=== PATIENT | male | born 1960 | race Caucasian/White ===

== ENCOUNTER 2018-05-12 18:42 | Emergency (ER) | payer BC ==
--- OUTSIDE RECORDS SUMMARY | 2018-05-12 18:58 | XMS REPORT | Continuity of Care Document ---
:1960 External Reference #:[id number] Author Name Fransico Vilchis D.O. Address [address] [place] [address] Care Team Providers Name Role Phone HCP given Primary Care Physician Unavailable Payers Date Identification Numbers Payment Provider Subscriber Policy Number: [id number] [employer] Leida Batres PayID: [id number] [address] [address] [place] [address] Advance Directives Description No Information Available Problems Date Description Provider Status Onset: 01/12/2013 Type 2 diabetes mellitus Fransico Vilchis D.O. Active Onset: 01/12/2013 Benign essential hypertension Fransico Vilchis D.O. Active Onset: 01/20/2013 Acute bronchitis Fransico Vilchis D.O. Active Onset: 01/20/2013 Anxiety state Fransico Vilchis D.O. Active Onset: 01/20/2013 Sleep disorder Fransico Vilchis D.O. Active Onset: 03/02/2013 Flatulence, eructation and gas pain Fransico Vilchis D.O. Active Onset: 03/02/2013 Vitamin D deficiency Fransico Vilchis D.O. Active Onset: 03/02/2013 Screening for malignant neoplasm of Fransico Vilchis D.O. Active colon Onset: 09/27/2014 Tension-type headache Fransico Vilchis D.O. Active Onset: 09/27/2014 Low back pain Fransico Vilchis D.O. Active Onset: 04/14/2015 Gastroesophageal reflux disease Fransico Vilchis D.O. Active Onset: 04/27/2015 C/O - a back symptom Fransico Vilchis D.O. Active Onset: 04/27/2015 Anemia Fransico Vilchis D.O. Active Onset: 04/27/2015 Allergy to bee venom Fransico Vilchis D.O. Active Onset: 06/03/2017 Essential hypertension Fransico Vilchis D.O. Active Family History Date Family Member(s) Observation Comments Number of Children 1 daughter and 1 son Number of Siblings 2 brothers and 2 sisters. Social History Type Date Description Comments Sex Unknown Marital Status Patient is Diet Diet is healthy and well balanced Employment Currently working Tobacco Use Start: Unknown Denies Cigarette Use Tobacco Use Start: Unknown End: Former Cigarette Smoker Unknown Smoking Status Reviewed: 04/14/18 Former Cigarette Smoker Tobacco Use Start: Unknown End: Patient is a former quit 16 years ago Unknown smoker Exercise Type/Frequency Exercises rarely Current Seat Belt/Car Seat Always uses a seat belt Allergies, Adverse Reactions, Alerts Date Description Reaction Status Severity Comments 11/12/2016 Bydureon Active welts on stomach 01/12/2013 NKDA Inactive Medications Medication Date Status Form Strength Qnty SIG Indications Ordering Provider Ventolin HFA 04/10 Active Aerosol 108(90Bas 18uni inhale 2 e) ts puffs by Fransico, mcg/Act mouth every 4 D.O. hours as needed for bronchospasm Ageless Male 04/01 Active Unknown Lantus Solostar 03/18 Active Solution 100Unit/M 90uni Inject 30 Pen-Injec L ts Units In The Fransico, t Morning. D.O. Increase By 2 Units Every 3 Days If 3 Day Average Morning Fasting Glucose Is Above 110. Max Of 120 Units/Day True Metrix 12/10 Active Strips 200un test 1-4 E11.65 [facility], Blood its times daily Fransico, Glucosetest as directed D.O. Strips Amlodipine 12/07 Active Tablets 10mg 90tab take one I10 [facility], Bes s tablet by Fransico, mouth every D.O. day for high blood pressure Metformin HCL 12/06 Active Tablets 500mg 450ta 2 by mouth in .65 bs a.m & 3 in at Fransico, night D.O. Cyclobenzaprine 10/14 Active Tablets 5mg 90tab 1 tab by Lck, HCL s mouth every Fransico, night for D.O. back pain. will make you drowsy Chlorthalidone 06/17 Active Tablets 25mg 90tab 1 by mouth I10 [place], s every day Geremias Bateman.O. Lisinopril 04/22 Active Tablets 40mg 90tab 1 [facility], s every day Geremias Bateman.O. Lancets 03/14 Active Misc 200un use as E11.65 M[facility] its directed for Fransico, Safety diabetic D.O. testing Freestyle Lite 03/14 Active Strips 200un or E11.65 [facility], Test its appropriate [place], testing D.O. strips for patients device, test 1-4 times daily as directed Onetouch Verio 07/26 Active Strips 90uni 1-4 times E11.65 [facility] ts daily as Fransico directed. D.O. Please substitute for strips that work with patient's device. Epipen 2-Buddy 04/27 Active Solution 0.3mg/0.3 2unit Administer Z91.030 Auto-Inje ML s 0.3 ml chevy Bateman intramuscular D.O. ly one time (dispense 2-buddy for each location, e.g. home/carry/ot her) may repeat one time for Freestyle Lite 04/12 Active Device 1unit or any other E11.65 [facility] Glucose s covered Fransico, Monitoring glucometer by D.O. System her insurance. Lorazepam 12/24 Active Tablets 1mg 60tab 1-2 by mouth F41.9 s nightly for Fransico sleep. D.O. Aspirin 01/07 Active Tablets 81mg 1 by mouth every day for heart disease protection Azithromycin 04/10 Hx Tablets 250mg 6tabs take 2 tablets by Fransico, - mouth one D.O. 04/15 time on the first day then take 1 tablet by mouth daily for 4 days Trelegy Ellipta 04/10 Hx Aerosol 100-62.5- 28uni inhale 1 puff J45.21 25mcg/Inh ts by mouth Fransico, - daily for D.O. 04/14 obstructive lung disease Lantus Solostar 12/06 Hx Solution 100Unit/M inject 18 E11.65 Pen-Injec L units in a.m. Fransico, - t & 18 units in D.O. 01/05 p.m. in 2u q3 days if 3 day average fasting a.m. glucose is >110. Tramadol HCL 10/14 Hx Tablets 50mg 20tab 1 by mouth s every 6 hours Fransico, - as needed for D.O. 01/06 pain Humalog Kwikpen 10/07 Hx Solution 100Unit/M 15uni check glu Pen-Injec L ts before lrgst Fransico, - t meal + D.O. 01/06 brkfst: 2u /2017 <150; 2u 151-200; 4u 201-250; 6u 251-300; chk gluc in 2 hour Atorvastatin 06/17 Hx Tablets 40mg 90tab 1 by mouth [facility], s every day Fransico, - D.O. 06/20 Amlodipine 06/03 Hx Tablets 5mg 90tab take 1 tablet I10 [facility], Bes s by mouth once Chi, - daily for M.D. 12/07 high blood /2018 pressure Lisinopril 03/14 Hx Tablets 20mg 90tab take one s tablet by Fransico, - mouth every D.O. 04/22 day for high 2018 blood pressure Lisinopril 03/01 Hx Tablets 10mg 90tab 1 by mouth s every day Fransico, - D.O. 03/14 Metformin HCL 11/12 Hx Tablets 500mg 450ta 1 by mouth E11.65 bs twice in Fransico, - morning and D.O. 12/06 three at /2018 night Lantus Solostar 09/19 Hx Solution 100Unit/M 90ml inject 44u in E11.65 Pen-Injec L the Am and Fransico, - t 44u in PM inc D.O. 12/06 by 2u every days if 3 day average morning fasting glucose is >110. mdd 120 unit BD Pen 09/19 Hx Misc 31G X 5 200un or E11.65 [place], Needle/Mini/ mm its appropriate Fransico, afine/31G X - needles for D.O. 05/17" 01/06 lantus pen. use up to 2/day, as directed, for insulin administratio n Bydureon 07/19 Hx Pen 2mg 12uni 2 mg E11.65 mehul, ts subcutaneousl Fransico, - y once D.O. 08/22 weekly. /2016 Farxiga 01/02 Hx Tablets 5mg 90tab 1 by mouth [facility] s every day Fransico, - D.O. 09/19 Metformin HCL 07/10 Hx Tablets 500mg 450ta 1 by mouth E11.65 [facility] bs twice in Fransico, - morning and D.O. 09/19 three at night Mens 07/09 Hx Tablets 1 po daily Unknown Multivitamin - 01/05 Ranitidine 150 04/14 Hx Tablets 150mg 180ta 1 cap by Mame, Maximum Strength bs mouth twice a Fransico, - day as needed D.O. 07/10 Truetrack Test 04/13 Hx Strips 150un 1-4 times E11.9 [facility] its daily as Fransico, - directed D.O. 08/22 Hydrocodone-Acet 04/10 Hx Tablets 5-325mg as needed Unknown aminophen /2015 - 07/10 Nexium 03/28 Hx Capsules 20mg 90cap 1 by mouth [facility] DR s every day Fransico, - D.O. 04/14 Cinnamon 12/31 Hx Capsules 500mg 1 po daily Unknown - 04/02 Metformin HCL 12/28 Hx Tablets 500mg 450ta 2 in the E11.9 [facility] morning and 3 Fr[place]ico, - at night D.O. 04/02 Victoza 12/28 Hx Solution 18mg/3ML 9ml initial: 0.6 E11. [facility] mg once daily Jeannine Bateman for 1 week; D.O. 12/28 then increase to 1.2 mg once daily [facility] Insulin 12/28 Hx Misc 31G X 8 90uni or other E11.9 [place], Pen Laona mm ts compatable Fransico, [id number] - needles with D.O. 09/18 victoza pens Bydureon 12/28 Hx Pen 2mg 12uni 2 mg E11.9 [facility], [facility] subcutaneousl [place] - y once D.O. 12/31 weekly. Ventolin HFA 11/17 Hx Aerosol 108(90Bas 24gm inhale 2 [facility] e) puffs by Jeannine Bateman mcg/Act mouth every 4 D.O. 06/02 hours needed for bronchospasm Farxiga 09/27 Hx Tablets 10mg 90tab 1 po [facility] 250.00 [facility] [place], - D.O. 12/31 Magox 400 09/27 Hx Tablets 400(241.3 360ta 1-4 tablets G44.209 [facility] mg) mg bs every night Fransico, - at bedtime as D.O. 07/18 M54.5 Esomeprazole 09/27/2014 - Hx Capsules DR 40mg 30caps take 1 [facility], Magnesium 03/28/2015 capsule by Allie Bateman mouth once daily as needed Atorvastatin 06/29/2014 - Hx Tablets 40mg 90tabs 1 by mouth 250. [facility], Calcium 04/14/2015 every day 00 Allie Bateman 272.0 Farxiga 03/29/2014 - Hx Tablets 5mg 30tabs 1 by mouth 250.00 [place], 09/27/2014 daily Allie Bateman Freestyle 03/29/2014 - Hx Strips 200units or appropriate [facility]11.9 [facility] 04/13/2015 testing strips Allie Bateman for patients device test 1-4 times daily as directed Lancet 03/29/2014 - Hx 360units whichever E11.65 Mame, Device For 03/14/2017 brand is Allie Bateman Testing preferred by Glucose insurance. testing daily- 4times a day # 360 Glipizide XL 03/02/2014 - Hx Tablets ER 5mg 90tabs 1/2 bid 250.00 [facility], 09/21/2013 24HR Allie Bateman Glipizide ER 12/24/2013 - Hx Tablets ER 2.5mg 180tabs 1 by mouth 250.00 [facility], 12/28/2014 24HR twice a day Allie Bateman E11.9 Trazodone HCL 12/24/2013 - Hx Tablets 50mg 30tabs take 1 tablet 307.49 [facility], 03/28/2014 by mouth daily Fransico, at bedtime for D.O. trouble sleeping Glipizide XL 11/16/2013 - Hx Tablets ER 5mg 60tabs take 1 tablet 250.00 [facility], 12/24/2013 24HR twice daily Kenia BatemanO. Ibuprofen 07/08/2013 - Hx Tablets 800mg 30tabs 1 cap by mouth [facility], 03/28/2015 three times a Fransico, day D.O. Lisinopril 06/22/2013 - Hx Tablets 10mg 90tabs take 1 tablet [facility], 04/02/2014 by mouth AT Fransico, Night D.O. Janumet 06/02/2013 - Hx Tablets 50-100 180tabs 1 by mouth E11.9 [facility] , 12/28/2014 0mg twice a day Fr[place]ico, for blood D.O. sugar control Accu-Chek 06/01/2013 - Hx Strips 102units use 2x/day and [place], Compact Test 03/13/2017 as needed for Lina Mireles monitoring M.Kenia blood sugar Acarbose 03/02/2013 - Hx Tablets 100mg 270tabs 1 tab by mouth 250.00 [facility], 06/09/2013 three times a [place]ico, day D.O. Probiotic 03/02/2013 - Hx Capsules 30caps 1 by mouth 787.3 [place], Acidophilus 09/30/2014 every day Fr[place]ico, D.O. Vitamin D3 03/02/2013 - Hx Tablets 5000Un 90tabs 1 tab by mouth 268.9 [place], 12/31/2014 it every day or 7 Fr[place]ico, tabs once a D.O. week Doxycycline 01/20/2013 - Hx Capsules 100mg 20caps 1 bid for ten 466.0 [place] Hyclate 01/30/2013 days until Fransico, gone D.O. Ventolin HFA 01/20/2013 - Hx Aerosol 108(90 1units Inhale 2 puffs 466.0 [place], 03/28/2014 Base) by mouth every Fransico, mcg/Ac 4 hours as D.O. t needed for bronchospasm Acarbose 01/20/2013 - Hx Tablets 50mg 90tabs Take 1 tablet 250.00 [place], 03/02/2013 by mouth 3 Fransico, times per day D.O. at the start of each main mealfor Type 2 diabetes Vistaril 01/20/2013 - Hx Capsules 25mg 30caps 1-2 cap by 300.00 [place] , 07/08/2013 mouth every Fransico, night as D.O. needed Acarbose 01/12/2013 - Hx Tablets 25mg 90tabs 1 po qAC 250.00 [place], 01/20/2013 [place]ico, D.O. Naproxen 01/23/2012 - Hx Tablets 500mg 60tabs 1 by mouth [place], 03/29/2014 twice a day w/ Fransico food D.O. Janumet XR 01/22/2012 - Hx Tablets ER 50-100 60tabs 1 by mouth [place] , 06/02/2013 24HR 0mg twice a day Chi for blood M.D. sugar control Glipizide XL 01/17/2012 - Hx Tablets ER 5mg 90tabs 1 bid 250.00 [place] , 01/12/2013 24HR [place], D.O. Lorazepam 01/16/2012 - Hx Tablets 1mg 30tabs 1 sl or by 250.00 [place], 12/24/2013 mouth every 6 Fransico, hours as D.O. needed for anxiety 300.00 Lisinopril 01/16/2012 - Hx Tablets 20mg 30tabs 1 po qd for 401.1 [place], 06/22/2013 high blood [place]ico, pressure D.O. Atorvastatin 01/16/2012 - Hx Tablets 10mg 90tabs take 1 [place], Calcium 06/29/2014 tablet by [place], mouth daily D.O. to prevent heart attack and stroke Metaxalone 01/16/2012 - Hx Tablets 800mg 60tabs 1 by mouth [place], 04/14/2018 at night as Fransico, needed for D.O. leg spasm Glipizide ER 02/03/2007 - Hx Tablets ER 10mg 30tabs 1 PO qam [facility] 11/11/2012 24HR Glucotrol XL 01/06/2007 - Hx Tablets ER 5mg 30tabs 1 po qam klemtck 02/03/2007 24HR Januvia 11/08/2006 - Hx Tablets 100mg 30tabs 1 po qam 250.00 [facility] 01/02/2013 One Touch Ultra 09/13/2006 - Hx Misc check [facility] Lancets 09/13/2007 sugars two times a day. One box One Touch Ultra 09/13/2006 - Hx Strips 90units Use as [facility] Test Strips 07/26/2016 Directed. One Touch 09/13/2006 - Hx Device #1 [employer] Ultrasmart 09/13/2007 Accu-Chek 08/30/2006 - Hx Misc 100units Used To [employer] Softclix 03/13/2017 Check Blood Lancets Sugars as Directed. Glucophage 08/26/2006 - Hx Tablets 1000mg 180tabs 1 PO bid 250.00 klepack 01/06/2013 Glucophage 07/22/2006 - Hx Tablets 500mg 60tabs 1 po bid. 250.00 klepack 08/26/2006 Simvastatin 07/22/2006 - Hx Tablets 40mg 90tabs 1 po qpm 272.0 [facility] 01/07/2013 Ak-Mycin 07/22/2006 - Hx 1/2 inch 372.00 [facility] 11/08/2006 ribbon of ointment to left eye 4 times A day. Norvasc 07/08/2006 - Hx Tablets 5mg 30tabs 1 po qpm 401.1 klepack 07/14/2006 Asmanex 04/11/2006 - Hx Inhaler 200mcg 1units 1 puff qd [facility] Twisthaler 01/08/2013 Albuterol Mdi 01/29/2006 - Hx Aerosol 90mcg/D 1units 2 puffs q 4 klepack 01/08/2013 ose hrs prn for SOB Fluoxetine 01/04/2006 - Hx Capsules 20mg 30caps 1 po qd 300.00 [facility] 01/14/2006 Valium 01/04/2006 - Hx Tablets 5mg 30tabs 1 po q pm 300.00 [facility] 01/07/2013 prn anxiety Nexium 11/30/2005 - Hx Capsules DR 40mg 30caps take 1 [place], 09/27/2014 capsule by [place], mouth once D.O. daily Diovan 11/26/2005 - Hx Tablets 160mg 90tabs 1 po bid [facility] 01/06/2013 Zetia 07/02/2005 - Hx Tablets 10mg 30tabs 1 po q day. 272.0 [facility] 11/26/2005 HCTZ 06/07/2005 - Hx Capsules 12.5mg 30caps 1 po q am 401.1 [facility] 11/26/2005 for high blood pressure Ambien 06/07/2005 - Hx Tablets 10mg 30tabs take 1 300.00 [facility] 11/26/2005 tablet at hs prn Glucotrol XL 05/28/2005 - Hx Tablets 10mg 60tabs 1 po bid [facility] 01/06/2007 Ranitidine 05/23/2005 - Hx Tablets 300mg 90tabs 1 po qd [facility] 01/07/2013 Soma 04/18/2005 - Hx Tablets 350mg 90tabs 1 po tid [facility] 10/15/2012 prn for pain. do not operate heavy equipment while on [facility]. Paxil 02/21/2005 - Hx Tablets 20mg 30tabs 1 po qam 785.1 [facility] 11/26/2005 Avandia - Hx Tablets 4mg 60tabs 1 po bid [facility] 12/25/2006 Pravachol - Hx Tablets 80mg 90tabs 1 po qd Unknown Unknown Ibuprofen - Hx Tablets 200mg otc taking 2 Unknown 07/08/2013 tab to 4 tab with a snack for your pain Immunizations CPT Code Status Date Vaccine Lot # [id number] Given 06/26/2014 Adacel or Boostrix, TDaP Vital Signs Date Vital Result Comment 04/14/2018 4:43pm BP Systolic 128 mmHg BP Diastolic 82 mmHg Weight 230.50 lb with work boots 04/10/2018 2:31pm BP Systolic 134 mmHg BP Diastolic 70 mmHg Body Temperature 98.1 F 04/02/2018 9:09am BP Systolic 128 mmHg BP Diastolic 82 mmHg Weight 226.00 lb 01/06/2018 5:00pm BP Systolic 124 mmHg BP Diastolic 70 mmHg Weight 217.00 lb 12/07/2017 11:51am BP Systolic 136 mmHg BP Diastolic 74 mmHg Weight 220.00 lb 10/14/2017 1:40pm BP Systolic 126 mmHg BP Diastolic 70 mmHg 10/07/2017 4:19pm BP Systolic 122 mmHg BP Diastolic 78 mmHg Height 71.75 inches 5'11.75" Weight 231.00 lb BMI (Body Mass Index) 31.5 kg/m2 06/17/2017 4:02pm BP Systolic 142 mmHg BP Diastolic 80 mmHg Weight 226.00 lb 06/03/2017 10:50am BP Systolic 168 mmHg BP Diastolic 90 mmHg BP Systolic Recheck 158 mmHg BP Diastolic Recheck 105 mmHg Weight 224.00 lb 03/14/2017 4:37pm BP Systolic 144 mmHg BP Diastolic 78 mmHg Height 71.25 inches 5'11.25" Weight 225.00 lb BMI (Body Mass Index) 31.2 kg/m2 11/12/2016 5:01pm BP Systolic 118 mmHg BP Diastolic 80 mmHg Weight 214.00 lb with work boots 09/19/2016 4:13pm BP Systolic 126 mmHg BP Diastolic 80 mmHg Weight 200.00 lb 07/19/2016 4:38pm BP Systolic 128 mmHg BP Diastolic 84 mmHg Height 71 inches 5'11" Weight 206.00 lb BMI (Body Mass Index) 28.7 kg/m2 08/29/2015 4:11pm BP Systolic 141 mmHg BP Diastolic 86 mmHg Heart Rate 78 /min Height 71 inches 5'11" Weight 196.00 lb BMI (Body Mass Index) 27.3 kg/m2 07/11/2015 10:51am BP Systolic 124 mmHg BP Diastolic 84 mmHg Height 72 inches 6'0" Weight 205.00 lb BMI (Body Mass Index) 27.8 kg/m2 04/27/2015 9:31am BP Systolic 120 mmHg BP Diastolic 78 mmHg 04/14/2015 12:54pm BP Systolic 152 mmHg BP Diastolic 82 mmHg Heart Rate 53 /min Weight 198.00 lb 03/28/2015 8:58am BP Systolic 120 mmHg BP Diastolic 80 mmHg Height 71.75 inches 5'11.75" Weight 192.00 lb BMI (Body Mass Index) 26.2 kg/m2 12/28/2014 8:47am BP Systolic 120 mmHg BP Diastolic 84 mmHg Heart Rate 86 /min Height 71.75 inches 5'11.75" Weight 216.00 lb w/shoes BMI (Body Mass Index) 29.5 kg/m2 09/27/2014 9:04am BP Systolic 110 mmHg BP Diastolic 72 mmHg Height 71.75 inches 5'11.75" Weight 214.00 lb BMI (Body Mass Index) 29.2 kg/m2 06/28/2014 9:09am BP Systolic 112 mmHg BP Diastolic 70 mmHg Weight 215.00 lb shoes on 03/29/2014 9:06am BP Systolic 140 mmHg BP Diastolic 84 mmHg Height 71.5 inches 5'11.50" Weight 223.00 lb BMI (Body Mass Index) 30.7 kg/m2 12/24/2013 8:59am BP Systolic 130 mmHg BP Diastolic 88 mmHg Weight 222.00 lb w/work boots 09/21/2013 9:14am BP Systolic 114 mmHg BP Diastolic 68 mmHg Weight 215.00 lb shoes on 07/08/2013 1:55pm BP Systolic 126 mmHg BP Diastolic 80 mmHg Height 72 inches 6'0" Weight 213.00 lb w/shoes BMI (Body Mass Index) 28.9 kg/m2 06/22/2013 9:32am BP Systolic 110 mmHg BP Diastolic 80 mmHg Height 72 inches 6'0" Weight 216.00 lb BMI (Body Mass Index) 29.3 kg/m2 03/02/2013 11:38am BP Systolic 108 mmHg BP Diastolic 70 mmHg Height 72 inches 6'0" Weight 215.00 lb BMI (Body Mass Index) 29.2 kg/m2 01/20/2013 11:14am BP Systolic 96 mmHg BP Diastolic 64 mmHg Body Temperature 97.8 F 01/12/2013 2:48pm BP Systolic 104 mmHg BP Diastolic 80 mmHg Height 72 inches 6'0" Weight 217.00 lb BMI (Body Mass Index) 29.4 kg/m2 12/25/2006 3:46pm BP Systolic 112 mmHg BP Diastolic 80 mmHg Body Temperature 98.4 F Height 72 inches 6'0" Weight 232.00 lb BMI (Body Mass Index) 31.5 kg/m2 11/08/2006 9:50am BP Systolic 120 mmHg BP Diastolic 78 mmHg Height 72 inches 6'0" Weight 233.00 lb BMI (Body Mass Index) 31.6 kg/m2 08/26/2006 9:25am BP Systolic 114 mmHg BP Diastolic 80 mmHg Height 72 inches 6'0" Weight 243.00 lb BMI (Body Mass Index) 33.0 kg/m2 07/22/2006 1:54pm BP Systolic 142 mmHg BP Diastolic 88 mmHg Height 72 inches 6'0" Weight 245.00 lb BMI (Body Mass Index) 33.2 kg/m2 07/08/2006 8:41am BP Systolic 150 mmHg BP Diastolic 104 mmHg Height 72 inches 6'0" Weight 248.00 lb BMI (Body Mass Index) 33.6 kg/m2 01/14/2006 11:21am BP Systolic 134 mmHg BP Diastolic 94 mmHg Height 72 inches 6'0" Weight 245.00 lb BMI (Body Mass Index) 33.2 kg/m2 01/04/2006 3:44pm BP Systolic 156 mmHg BP Diastolic 100 mmHg Body Temperature 98.6 F Height 72 inches 6'0" Weight 243.00 lb BMI (Body Mass Index) 33.0 kg/m2 Last Menstrual Period 0 11/26/2005 11:41am BP Systolic 124 mmHg BP Diastolic 76 mmHg Height 72 inches 6'0" Weight 237.00 lb BMI (Body Mass Index) 32.1 kg/m2 11/26/2005 11:40am BP Systolic 124 mmHg BP Diastolic 76 mmHg Height 72 inches 6'0" Weight 237.00 lb BMI (Body Mass Index) 32.1 kg/m2 07/02/2005 9:06am BP Systolic 128 mmHg BP Diastolic 82 mmHg Height 72 inches 6'0" Weight 242.00 lb BMI (Body Mass Index) 32.8 kg/m2 06/07/2005 1:00pm BP Systolic 140 mmHg BP Diastolic 100 mmHg Height 72 inches 6'0" Weight 250.00 lb BMI (Body Mass Index) 33.9 kg/m2 Last Menstrual Period 0 03/12/2005 10:33am BP Systolic 130 mmHg BP Diastolic 84 mmHg Height 72 inches 6'0" 02/21/2005 2:17pm BP Systolic 130 mmHg BP Diastolic 92 mmHg Height 72 inches 6'0" Weight 240.00 lb BMI (Body Mass Index) 32.5 kg/m2 Results Test Date Facility Test Result H/L Range Note Laboratory test 04/14/2018 In House Hemoglobin A1c 7.5 finding CBC Auto Diff 04/02/2018 [facility] White Blood 6.7 10^3/uL N 3.5- 10.8 [phone] Count Red Blood Count 5.08 10^6/uL N 4.00-5.40 Hemoglobin 14.2 g/dL N 14.0-18.0 Hematocrit 43 % N 42-52 Mean Corpuscular Volume 84 fL N 80-94 Mean Corpuscular Hemoglobin 28 pg N 27-31 Mean Corpuscular HGB Conc 34 g/dL N 31-36 Red Cell Distribution Width 14 % N 10.5-15 Platelet Count 236 10^3/uL N 150-450 Mean Platelet Volume 7.9 fL N 7.4-10.4 Abs Neutrophils 4.1 10^3/uL N 1.5-7.7 Abs Lymphocytes 1.6 10^3/uL N 1.0-4.8 Abs Monocytes 0.7 10^3/uL N 0-0.8 Abs Eosinophils 0.3 10^3/uL N 0-0.6 Abs Basophils 0.1 10^3/uL N 0-0.2 Abs Nucleated RBC 0 10^3/uL Granulocyte % 60.7 % Lymphocyte % 23.7 % Monocyte % 10.5 % Eosinophil % 4.0 % Basophil % 1.1 % Nucleated Red Blood Cells % 0 Comp Metabolic Panel 04/02/2018 [facility] Sodium 137 mmol/L N 135- 145 [phone] Potassium 4.8 mmol/L N 3.5-5.0 Chloride 102 mmol/L N 101-111 Co2 Carbon Dioxide 27 mmol/L N 22-32 Anion Gap 8 mmol/L N 2-11 Glucose 109 mg/dL High 70-100 Blood Urea Nitrogen 32 mg/dL High 6-24 Creatinine 1.39 mg/dL High 0.67-1.17 BUN/Creatinine Ratio 23.0 High 8-20 Calcium 9.9 mg/dL N 8.6-10.3 Total Protein 7.1 g/dL N 6.4-8.9 Albumin 4.6 g/dL N 3.2-5.2 Globulin 2.5 g/dL N 2-4 Albumin/Globulin Ratio 1.8 N 1-3 Total Bilirubin 0.60 mg/dL N 0.2-1.0 Alkaline Phosphatase 72 U/L N 34-104 Alt 36 U/L N 7-52 Ast 30 U/L N 13-39 Egfr Non- 52.5 >60 Egfr 63.5 >60 1 Lipid Profile (Trig/Chol/HDL) 04/02/2018 [facility] Triglycerides 149 mg/dL 2 [phone] Cholesterol 217 mg/dL 3 HDL Cholesterol 42.9 mg/dL 4 LDL Cholesterol 144 mg/dL 5 Urine Microalbumin 04/02/2018 [facility] Ur Microalbumin (mg/L) 15.4 Random [phone] Urine Creatinine 149.32 mg/dL Urine Microalbumin/Creatinine 10.3 N <31 Laboratory test 01/06/2018 In House Hemoglobin A1c 6.7 finding Comp Metabolic Panel 10/25/2017 [facility] Sodium 139 mmol/L N 135- 145 [phone] Potassium 4.5 mmol/L N 3.5-5.0 Chloride 105 mmol/L N 101-111 Co2 Carbon Dioxide 26 mmol/L N 22-32 Anion Gap 8 mmol/L N 2-11 Glucose 126 mg/dL High 70-100 Blood Urea Nitrogen 31 mg/dL High 6-24 Creatinine 1.40 mg/dL High 0.67-1.17 BUN/Creatinine Ratio 22.1 High 8-20 Calcium 9.1 mg/dL N 8.6-10.3 Total Protein 6.5 g/dL N 6.4-8.9 Albumin 4.2 g/dL N 3.2-5.2 Globulin 2.3 g/dL N 2-4 Albumin/Globulin Ratio 1.8 N 1-3 Total Bilirubin 0.50 mg/dL N 0.2-1.0 Alkaline Phosphatase 65 U/L N 34-104 Alt 48 U/L N 7-52 Ast 34 U/L N 13-39 Egfr Non- 52.1 >60 Egfr 63.0 >60 6 CBC Auto Diff 10/25/2017 [facility] White Blood Count 5.9 10^3/uL N 3.5-10.8 [phone] Red Blood Count 4.86 10^6/uL N 4.00-5.40 Hemoglobin 14.1 g/dL N 14.0-18.0 Hematocrit 41 % Low 42-52 Mean Corpuscular Volume 85 fL N 80-94 Mean Corpuscular Hemoglobin 29 pg N 27-31 Mean Corpuscular HGB Conc 34 g/dL N 31-36 Red Cell Distribution Width 14 % N 10.5-15 Platelet Count 204 10^3/uL N 150-450 Mean Platelet Volume 8.1 um3 N 7.4-10.4 Abs Neutrophils 3.2 10^3/uL N 1.5-7.7 Abs Lymphocytes 1.7 10^3/uL N 1.0-4.8 Abs Monocytes 0.7 10^3/uL N 0-0.8 Abs Eosinophils 0.2 10^3/uL N 0-0.6 Abs Basophils 0.1 10^3/uL N 0-0.2 Abs Nucleated RBC 0 10^3/uL Granulocyte % 55.0 % N 38-83 Lymphocyte % 28.2 % N 25-47 Monocyte % 12.2 % High 0-7 Eosinophil % 3.7 % N 0-6 Basophil % 0.9 % N 0-2 Nucleated Red Blood Cells % 0 Laboratory test finding 10/25/2017 [facility] Magnesium 2.0 mg/dL N 1.9-2.7 7 [phone] Vitamin B12 386 pg/mL N [phone] 8 Vitamin D Total 25(Oh) 41.4 ng/mL N 20-50 9 TSH (Thyroid Stim Horm) 2.19 mcIU/mL N 0.34-5.60 10 Creatine Kinase(CK) 329 U/L High 10-223 11 Celiac Hla 10/25/2017 [facility] [id number] SEE BELOW 12 [phone] [id number] SEE BELOW 13 Celiac Gene Pairs Present? No Celiac Gene Interpretation See Comment 14 Celiac Panel 10/25/2017 [facility] Tissue Transglutaminase IgA <1.2 U/ mL 15 [phone] Ab Immunoglobulin A 319 mg/dL 61 - 356 Celiac Interpretation See Comment 16 Lipid Profile 10/25/2017 [facility] Triglycerides 139 mg/dL 17 (Trig/Chol/HDL) [phone] Cholesterol 196 mg/dL 18 HDL Cholesterol 41.6 mg/dL 19 LDL Cholesterol 127 mg/dL 20 Lyme Western Blot 10/25/2017 [facility] Lyme Disease IgG Negative Negative [phone] Ab WB Lyme Disease IgG Bands Present No bands detecte <SEE NOTE> kDa 21 Lyme Disease IgM Ab WB Negative Negative Lyme Disease IgM Bands Present No bands detecte <SEE NOTE> kDa 22 Lyme Disease Interpretation See Comment 23 Tick-Borne Panel PCR 10/25/2017 [facility] Babesia microti Negative Negative Blood [phone] PCR Babesia ducani Negative Negative Babesia divergens/Mo-1 Negative Negative 24 Anaplasma phagocytophilum Negative Negative Ehrlichia chaffeensis Negative Negative Ehrlichia ewingii/canis Negative Negative Ehrlichia muris-like Negative Negative 25 B. miyamotoi PCR, B Negative Negative 26 Laboratory test 10/07/2017 In House Hemoglobin A1c 7.7 finding Laboratory test 06/17/2017 In House Hemoglobin A1c 7.5 finding Comp Metabolic Panel 06/03/2017 [facility] Sodium 141 mmol/L N 139- 145 [phone] Potassium 4.0 mmol/L N 3.5-5.0 Chloride 104 mmol/L N 101-111 Co2 Carbon Dioxide 28 mmol/L N 22-32 Anion Gap 9 mmol/L N 2-11 Glucose 105 mg/dL High 70-100 Blood Urea Nitrogen 18 mg/dL N 6-24 Creatinine 1.11 mg/dL N 0.67-1.17 BUN/Creatinine Ratio 16.2 N 8-20 Calcium 9.2 mg/dL N 8.6-10.3 Total Protein 6.5 g/dL N 6.4-8.9 Albumin 4.2 g/dL N 3.2-5.2 Globulin 2.3 g/dL N 2-4 Albumin/Globulin Ratio 1.8 N 1-3 Total Bilirubin 0.90 mg/dL N 0.2-1.0 Alkaline Phosphatase 62 U/L N 34-104 Alt 60 U/L High 7-52 Ast 49 U/L High 13-39 Egfr Non- 68.3 >60 Egfr 87.8 >60 27 CBC Auto Diff 06/03/2017 [facility] White Blood Count 6.1 10^3/uL N 3.5-10.8 [phone] Red Blood Count 5.03 10^6/uL N 4.0-5.4 Hemoglobin 14.5 g/dL N 14.0-18.0 Hematocrit 42 % N 42-52 Mean Corpuscular Volume 83 fL N 80-94 Mean Corpuscular Hemoglobin 29 pg N 27-31 Mean Corpuscular HGB Conc 35 g/dL N 31-36 Red Cell Distribution Width 14 % N 10.5-15 Platelet Count 155 10^3/uL N 150-450 Mean Platelet Volume 8.1 um3 N 7.4-10.4 Abs Neutrophils 3.6 10^3/uL N 1.5-7.7 Abs Lymphocytes 1.6 10^3/uL N 1.0-4.8 Abs Monocytes 0.7 10^3/uL N 0-0.8 Abs Eosinophils 0.2 10^3/uL N 0-0.6 Abs Basophils 0 10^3/uL N 0-0.2 Abs Nucleated RBC 0 10^3/uL Granulocyte % 58.3 % N 38-83 Lymphocyte % 25.9 % N 25-47 Monocyte % 11.2 % High 0-7 Eosinophil % 3.8 % N 0-6 Basophil % 0.8 % N 0-2 Nucleated Red Blood Cells % 0.1 Laboratory test 05/27/2017 [facility] Clotest SEE RESULT 28, 29 finding [phone] BELOW Laboratory test 05/27/2017 [facility] Surgical Pathology SEE RESULT 30, 31 finding [phone] BELOW Laboratory test 03/14/2017 In House Hemoglobin A1c 7.1 finding Laboratory test 11/12/2016 In House Hemoglobin A1c 8.2 finding Laboratory test 08/03/2016 [facility] TSH (Thyroid Stim 1.70 N 0.34- 32 finding [phone] Horm) mcIU/mL 5.60 Lipid Profile 08/03/2016 [facility] Triglycerides 188 mg/dL N 33 (Trig/Chol/HDL) [phone] Cholesterol 210 mg/dL N 34 HDL Cholesterol 37.8 mg/dL N 35 LDL Cholesterol 135 mg/dL N 36 Urine Microalbumin 08/03/2016 [facility] Urine Creatinine 81.63 mg/dL N Random [phone] Ur Microalbumin (mg/L) < 15.0 mg/L N Urine Microalbumin/Creatinine TNP ug/mg N <31 37 Comp Metabolic Panel 08/03/2016 [facility] Sodium 137 mmol/L N 133- 145 [phone] Potassium 4.4 mmol/L N 3.5-5.0 Chloride 104 mmol/L N 101-111 Co2 Carbon Dioxide 26 mmol/L N 22-32 Anion Gap 7 mmol/L N 2-11 Glucose 166 mg/dL High 70-100 Blood Urea Nitrogen 25 mg/dL High 6-24 Creatinine 1.10 mg/dL N 0.67-1.17 BUN/Creatinine Ratio 22.7 High 8-20 Calcium 9.3 mg/dL N 8.6-10.3 Total Protein 6.8 g/dL N 6.4-8.9 Albumin 4.3 g/dL N 3.2-5.2 Globulin 2.5 g/dL N 2-4 Albumin/Globulin Ratio 1.7 N 1-3 Total Bilirubin 1.00 mg/dL N 0.2-1.0 Alkaline Phosphatase 78 U/L N 34-104 Alt 43 U/L N 7-52 Ast 33 U/L N 13-39 Egfr Non- 69.0 N >60 Egfr 88.7 N >60 38 CBC Auto Diff 08/03/2016 [facility] White Blood Count 5.4 10^3/uL N 3.5-10.8 [phone] Red Blood Count 5.99 10^6/uL High 4.0-5.4 Hemoglobin 16.4 g/dL N 14.0-18.0 Hematocrit 50 % N 42-52 Mean Corpuscular Volume 84 fL N 80-94 Mean Corpuscular Hemoglobin 27 pg N 27-31 Mean Corpuscular HGB Conc 33 g/dL N 31-36 Red Cell Distribution Width 15 % N 10.5-15 Platelet Count 158 10^3/uL N 150-450 Mean Platelet Volume 9 um3 N 7.4-10.4 Abs Neutrophils 3.0 10^3/uL N 1.5-7.7 Abs Lymphocytes 1.4 10^3/uL N 1.0-4.8 Abs Monocytes 0.6 10^3/uL N 0-0.8 Abs Eosinophils 0.3 10^3/uL N 0-0.6 Abs Basophils 0.1 10^3/uL N 0-0.2 Abs Nucleated RBC 0 10^3/uL N Granulocyte % 56.0 % N 38-83 Lymphocyte % 26.8 % N 25-47 Monocyte % 11.4 % High 1-9 Eosinophil % 4.8 % N 0-6 Basophil % 1.0 % N 0-2 Nucleated Red Blood Cells % 0.1 N Laboratory test finding 07/19/2016 In House Hemoglobin A1c 9.0 Laboratory test finding 08/29/2015 In House Hemoglobin A1c 7.5 Ua Inhouse 08/29/2015 In House Ua Glucose - Ua Bilirubin - Ua Ketones - Ua Specific Bennett 1.025 Ua Blood - Ua PH 5.0 Ua Protein - Ua Urobilinogen - Ua Nitrite - Ua Leukocytes - Ua Inhouse 07/11/2015 In House Ua Glucose 2+ 39 Ua Bilirubin - Ua Ketones - Ua Specific Bennett 1.015 Ua Blood - Ua PH 6.0 Ua Protein - Ua Urobilinogen - Ua Nitrite - Ua Leukocytes - Laboratory test 07/11/2015 In House Hemoglobin A1c 9.3 finding CBC Auto Diff 04/27/2015 [facility] White Blood Count 5.2 10^3/uL N 3.5-10.8 [phone] Red Blood Count 5.55 10^6/uL High 4.0-5.4 Hemoglobin 15.2 g/dL N 14.0-18.0 Hematocrit 46 % N 42-52 Mean Corpuscular Volume 83 fL N 80-94 Mean Corpuscular Hemoglobin 27 pg N 27-31 Mean Corpuscular HGB Conc 33 g/dL N 31-36 Red Cell Distribution Width 14 % N 10.5-15 Platelet Count 144 10^3/uL Low 150-450 Mean Platelet Volume 9 um3 N 7.4-10.4 Abs Neutrophils 2.9 10^3/uL N 1.5-7.7 Abs Lymphocytes 1.6 10^3/uL N 1.0-4.8 Abs Monocytes 0.6 10^3/uL N 0-0.8 Abs Eosinophils 0.2 10^3/uL N 0-0.6 Abs Basophils 0 10^3/uL N 0-0.2 Abs Nucleated RBC 0 10^3/uL N Granulocyte % 54.7 % N 38-83 Lymphocyte % 30.0 % N 25-47 Monocyte % 10.6 % High 1-9 Eosinophil % 4.1 % N 0-6 Basophil % 0.6 % N 0-2 Nucleated Red Blood Cells % 0 N Laboratory test finding 04/27/2015 [facility] Ferritin 28.8 ng/mL N 24-336 [phone] Iron & Iron Binding Capacity 04/27/2015 [facility] Iron 115 g/dL N 50-212 [phone] Unsaturated Iron Binding 318 g/dL N Total Iron Binding Capacity 433 g/dL N 250-450 % Iron Saturation 27 % N 15-55 Retic Count 04/27/2015 [facility] Retic Count 1.3 % N 0.5-1.5 [phone] Corrected Retic Count 1.3 % N 0.5-1.5 Maturation Factor Retic 1.0 N Retic Index 1.30 N Mean Retic Volume 100.2 N Immature Retic Fraction 0.35 N RBC Retic Count 5.55 10^6/uL N 4.6-6.2 Hematocrit for Retic CNT 46 % N 42-52 Laboratory test 04/27/2015 [facility] Folic Acid > 20.00 N >3.99 finding [phone] (Folate) ng/mL Laboratory test 04/14/2015 [facility] Magnesium 1.9 mg/dL N 1.9-2.7 finding [phone] Vitamin B12 433 pg/mL N 180-914 40 Vitamin D Total 25(Oh) 31.5 ng/mL N 30-50 TSH (Thyroid Stim Horm) 3.62 ?IU/mL N 0.34-5.60 Creatine Kinase(CK) 178 U/L N 10-223 CBC Auto Diff 04/14/2015 [facility] White Blood Count 5.3 10^3/uL N 3.5-10.8 [phone] Red Blood Count 5.01 10^6/uL N 4.0-5.4 Hemoglobin 13.7 g/dL Low 14.0-18.0 Hematocrit 42 % N 42-52 Mean Corpuscular Volume 83 fL N 80-94 Mean Corpuscular Hemoglobin 27 pg N 27-31 Mean Corpuscular HGB Conc 33 g/dL N 31-36 Red Cell Distribution Width 15 % N 10.5-15 Platelet Count 147 10^3/uL Low 150-450 Mean Platelet Volume 9 um3 N 7.4-10.4 Abs Neutrophils 3.2 10^3/uL N 1.5-7.7 Abs Lymphocytes 1.3 10^3/uL N 1.0-4.8 Abs Monocytes 0.5 10^3/uL N 0-0.8 Abs Eosinophils 0.2 10^3/uL N 0-0.6 Abs Basophils 0 10^3/uL N 0-0.2 Abs Nucleated RBC 0.01 10^3/uL N Granulocyte % 60.9 % N 38-83 Lymphocyte % 25.2 % N 25-47 Monocyte % 9.4 % High 1-9 Eosinophil % 3.7 % N 0-6 Basophil % 0.8 % N 0-2 Nucleated Red Blood Cells % 0.2 N Comp Metabolic Panel 04/14/2015 [facility] Sodium 138 mmol/L N 133- 145 [phone] Potassium 4.1 mmol/L N 3.5-5.0 Chloride 104 mmol/L N 101-111 Co2 Carbon Dioxide 28 mmol/L N 22-32 Anion Gap 6 mmol/L N 2-11 Glucose 154 mg/dL High 70-100 Blood Urea Nitrogen 23 mg/dL N 6-24 Creatinine 1.15 mg/dL N 0.67-1.17 BUN/Creatinine Ratio 20.0 N 8-20 Calcium 8.8 mg/dL N 8.6-10.3 Total Protein 6.0 g/dL Low 6.4-8.9 Albumin 4.0 g/dL N 3.2-5.2 Globulin 2.0 g/dL N 2-4 Albumin/Globulin Ratio 2.0 N 1-3 Total Bilirubin 0.70 mg/dL N 0.2-1.0 Alkaline Phosphatase 77 U/L N 34-104 Alt 16 U/L N 7-52 Ast 19 U/L N 13-39 Egfr Non- 66.0 N >60 Egfr 84.9 N >60 41 Laboratory test finding 03/28/2015 In House Hemoglobin A1c 5.9 Liver Function Panel 03/28/2015 [facility] Total Protein 6.8 g/dL N 6.4-8.9 [phone] Albumin 4.5 g/dL N 3.2-5.2 Globulin 2.3 g/dL N 2-4 Albumin/Globulin Ratio 2.0 N 1-3 Total Bilirubin 1.00 mg/dL N 0.2-1.0 Direct Bilirubin 0.20 mg/dL High 0.03-0.18 Indirect Bilirubin 0.8 mg/dL N 0.3-1.0 Alkaline Phosphatase 83 U/L N 34-104 Alt 19 U/L N 7-52 Ast 23 U/L N 13-39 Urine Microalbumin 03/28/2015 [facility] Ur Microalbumin (mg/L) 7.0 mg/ L N Random [phone] Urine Creatinine 205.19 mg/dL N Urine Microalbumin/Creatinine 3.4 ug/mg N <31 Laboratory test 12/28/2014 In House Hemoglobin A1c 7.8 finding Laboratory test 09/27/2014 In House Hemoglobin A1c 7.7 finding Basic Metabolic 06/28/2014 [facility] Sodium 138 mmol/L N 133-145 42 Panel [phone] Potassium 4.4 mmol/L N 3.5-5.0 Chloride 104 mmol/L N 101-111 Co2 Carbon Dioxide 27 mmol/L N 22-32 Anion Gap 7 mmol/L N 2-11 Glucose 131 mg/dL High 70-100 Blood Urea Nitrogen 19 mg/dL N 6-24 Creatinine 1.14 mg/dL N 0.67-1.17 BUN/Creatinine Ratio 16.7 N 8-20 Calcium 9.1 mg/dL N 8.6-10.3 Egfr Non- 66.9 N >60 Egfr 86.1 N >60 43 Lipid Profile 06/28/2014 [facility] Triglycerides 117 mg/dL N 44 (Trig/Chol/HDL) [phone] Cholesterol 144 mg/dL N 45 HDL Cholesterol 34.6 mg/dL N 46 LDL Cholesterol 86 mg/dL N 47 Laboratory test 06/28/2014 In House Hemoglobin A1c 6.9 finding Laboratory test 03/29/2014 In House Hemoglobin A1c 9.7 finding Urine Microalbumin 12/24/2013 [facility] Ur Microalbumin (mg/L) 5.0 mg/ L N Random [phone] Urine Creatinine 111.93 mg/dL N Urine Microalbumin/Creatinine 4.4 N Less Than 31 CBC Auto Diff 12/24/2013 [facility] White Blood Count 6.0 10^3/uL N 4.8-10.8 [phone] Red Blood Count 5.21 10^6/uL N 4.0-5.4 Hemoglobin 14.4 g/dL N 14.0-18.0 Hematocrit 43 % N 42-52 Mean Corpuscular Volume 83 fL N 80-94 Mean Corpuscular Hemoglobin 28 pg N 27-31 Mean Corpuscular HGB Conc 33 g/dL N 31-36 Red Cell Distribution Width 14 % N 10.5-15 Platelet Count 173 10^3/uL N 150-450 Mean Platelet Volume 8 um3 N 7.4-10.4 Abs Neutrophils 3.4 10^3/uL N 1.5-7.7 Abs Lymphocytes 1.7 10^3/uL N 1.0-4.8 Abs Monocytes 0.7 10^3/uL N 0-0.8 Abs Eosinophils 0.2 10^3/uL N 0-0.6 Abs Basophils 0.1 10^3/uL N 0-0.2 Abs Nucleated RBC 0 10^3/uL N Granulocyte % 56.4 % N 38-83 Lymphocyte % 27.5 % N 25-47 Monocyte % 12.3 % High 1-9 Eosinophil % 2.9 % N 0-6 Basophil % 0.9 % N 0-2 Nucleated Red Blood Cells % 0.1 N Comp Metabolic Panel 12/24/2013 [facility] Sodium 137 mmol/L N 133- 145 [phone] Potassium 5.0 mmol/L N 3.7-5.6 Chloride 102 mmol/L N 101-111 Co2 Carbon Dioxide 29 mmol/L N 22-32 Anion Gap 6 mmol/L N 2-11 Glucose 128 mg/dL High 70-100 Blood Urea Nitrogen 16 mg/dL N 6-24 Creatinine 1.04 mg/dL N 0.67-1.17 BUN/Creatinine Ratio 15.4 N 8-20 Calcium 9.3 mg/dL N 8.6-10.3 Total Protein 7.0 g/dL N 6.4-8.9 Albumin 4.4 g/dL N 3.2-5.2 Globulin 2.6 g/dL N 2-4 Albumin/Globulin Ratio 1.7 N 1-3 Total Bilirubin 0.80 mg/dL N 0.2-1.0 Alkaline Phosphatase 68 U/L N 34-104 Alt 38 U/L N 7-52 Ast 27 U/L N 13-39 Egfr Non- 74.4 N >60 Egfr 95.7 N >60 48 Laboratory test 12/24/2013 [facility] TSH (Thyroid 3.12 IU/mL N 0.34- 5.60 finding [phone] Stimulating Horm) Vitamin D, 25 12/24/2013 [facility] 25-Hydroxy <4.0 ng/mL N Hydroxy [phone] Vitamin D2 25-Hydroxy Vitamin D3 36 ng/mL N 25-Hydroxy Vitamin D Total 36 ng/mL N 49 Laboratory test 12/24/2013 In House Hemoglobin A1c 7.2 finding Laboratory test 09/21/2013 In House Hemoglobin A1c 6.5 finding GC/Chlamydia 07/08/2013 [facility] GC/Chlamydia Rna (SEE NOTE) 50 Amplified Rna [phone] Laboratory test 06/22/2013 In House Hemoglobin A1c 6.2 finding Urine Microalbumin 03/02/2013 [facility] Ur Microalbumin 8.0 mg/L 51 Random [phone] (mg/L) Urine Creatinine 216.6 mg/dL Urine Microalbumin/Creatinine 3.7 Less Than 31 Laboratory test 03/02/2013 In House Hemoglobin A1c 7.6 finding Laboratory test 02/27/2013 [facility] Hepatitis C Nonreactive Nonreactive finding [phone] Antibody Vitamin D, 25 02/27/2013 [facility] 25-Hydroxy <4.0 ng/mL Hydroxy [phone] Vitamin D2 25-Hydroxy Vitamin D3 26 ng/mL 25-Hydroxy Vitamin D Total 26 ng/mL 52 CBC Auto Diff 02/27/2013 [facility] White Blood Count 5.4 10^3/uL 4.8-10.8 [phone] Red Blood Count 4.74 10^6/uL 4.0-5.4 Hemoglobin 13.0 g/dL Low 14.0-18.0 Hematocrit 38 % Low 42-52 Mean Corpuscular Volume 81 fL 80-94 Mean Corpuscular Hemoglobin 28 pg 27-31 Mean Corpuscular HGB Conc 34 g/dL 31-36 Red Cell Distribution Width 13 % 10.5-15 Platelet Count 212 10^3/uL 150-450 Mean Platelet Volume 8 um3 7.4-10.4 Abs Neutrophils 3.1 10^3/uL 1.5-7.7 Abs Lymphocytes 1.4 10^3/uL 1.0-4.8 Abs Monocytes 0.8 10^3/uL 0-0.8 Abs Eosinophils 0.1 10^3/uL 0-0.6 Abs Basophils 0.1 10^3/uL 0-0.2 Abs Nucleated RBC 0 10^3/uL Granulocyte % 57.7 % 38-83 Lymphocyte % 25.0 % 25-47 Monocyte % 14.4 % High 1-9 Eosinophil % 1.9 % 0-6 Basophil % 1.0 % 0-2 Nucleated Red Blood Cells % 0.1 Comp Metabolic Panel 02/27/2013 [facility] Sodium 138 mmol/L 133- 145 [phone] Potassium 4.3 mmol/L 3.5-5.0 Chloride 101 mmol/L 101-111 Co2 Carbon Dioxide 29.0 mmol/L 22-32 Anion Gap 8.0 mmol/L 2-11 Glucose 160 mg/dL High 70-100 Blood Urea Nitrogen 14 mg/dL 6-24 Creatinine 1.20 mg/dL 0.50-1.40 BUN/Creatinine Ratio 11.7 8-20 Calcium 8.7 mg/dL 8.1-9.9 Total Protein 6.5 g/dL 6.2-8.1 Albumin 3.5 g/dL Low 3.6-5.4 Globulin 3.0 g/dL 2-4 Albumin/Globulin Ratio 1.2 1-3 Total Bilirubin 1.0 mg/dL 0.4-1.5 Alkaline Phosphatase 83 U/L 30-110 Alt 35 U/L 14-54 Ast 28 U/L 12-42 Egfr Non- 63.3 >60 Egfr 81.4 >60 53 Laboratory test 02/27/2013 [facility] PSA Screening 0.704 ng/mL 0- 4.000 54 finding [phone] Lipid Profile 02/27/2013 [facility] Triglycerides 86 mg/dL 40-200 (Trig/Chol/HDL) [phone] Cholesterol 136 mg/dL Less than 200 HDL Cholesterol 33 mg/dL Low 40-60 55 Cholesterol/HDL Ratio 4.1 Average 1-4.44 LDL Cholesterol 85.8 Less Than 100 56 Ua Inhouse 01/12/2013 In House Ua Glucose - Ua Bilirubin - Ua Ketones - Ua Specific Bennett 1.030 Ua Blood - Ua PH 5.0 Ua Protein - Ua Urobilinogen - Ua Nitrite - Ua Leukocytes - Lipid Profile 05/26/2007 [facility] Cholesterol/HDL 5.16 High 1-4.97 (Trig/Chol/HDL) [phone] Ratio AVERAGE Cholesterol 160 mg/dL Less Than 200 57 Triglyceride 231 mg/dL High 40-200 High Density Lipoprotein 31 mg/dL Low 40-60 58 Low Density Lipoprotein 83 mg/dL Less Than 100 59 Comp Metabolic Panel 05/26/2007 [facility] One Over Creatinine 0.90 [phone] Anion Gap 7.0 mmol/L 2-11 60 Albumin/Globulin Ratio 1.8 1-3 Albumin 4.1 GM/DL 3.6-5.4 Alkaline Phosphatase 73 U/L 39-117 Alt (SGPT) 61 U/L 17-63 Ast (Sgot) 43 U/L High 12-42 BUN 15 mg/dL 6-24 Calcium 8.9 mg/dL 8.7-10.2 Chloride 100 mmol/L Low 101-111 Co2 (Carbon Dioxide) 31.0 mmol/L 22-32 Globulin 2.3 GM/DL 2-4 Glucose 185 mg/dL High 70-105 Potassium 4.3 mmol/L 3.5-5.0 Sodium 138 mmol/L 135-145 Bilirubin Total 1.1 mg/dL 0.4-1.5 Total Protein 6.4 GM/DL 6.2-8.1 BUN/Creatinine Ratio 13.6 8-20 Creatinine 1.1 mg/dL 0.5-1.4 Laboratory test finding 05/26/2007 [facility] Hemoglobin A1c 7.6 % High <6.0 61 [phone] CBC With Manual Diff 05/26/2007 [facility] RBC Morphology NORMAL [phone] White Blood Count 7.0 CUMM 4.8-10.8 Absolute Neutrophil Count 5.1 Hematocrit 42 % 42-52 Hemoglobin 15.0 g/dL 14.0-18.0 Eosenophil 4 % 0-6 Lymphocyte 18 % 5-47 Mean Corpuscular HGB Cone 35 g/dL 32-36 Mean Corpuscular Hemoglob 28 pg 27-31 Mean Corpuscular Volume 80 um3 80-94 Monocyte 5 % 0-13 Mean Platelet Volume 8.6 um3 7.4-10.4 Platelet Count 177 CUMM 150-450 Polysegmented Neutrophil 73 % 38-83 Red Cell Count 5.32 CUMM 4.6-6.2 Redcell Distribution WDTH 14 % 10.5-15 Comp Metabolic Panel 01/07/2007 [facility] One Over Creatinine 0.90 [phone] Anion Gap 7.0 mmol/L 2-11 62 Albumin/Globulin Ratio 1.6 1-3 Albumin 4.2 GM/DL 3.6-5.4 Alkaline Phosphatase 92 U/L 39-117 Alt (SGPT) 61 U/L 17-63 Ast (Sgot) 49 U/L High 12-42 BUN 19 mg/dL 6-24 Calcium 9.4 mg/dL 8.7-10.2 Chloride 103 mmol/L 101-111 Co2 (Carbon Dioxide) 29.0 mmol/L 22-32 Globulin 2.6 GM/DL 2-4 Glucose 169 mg/dL High 70-105 Potassium 4.4 mmol/L 3.5-5.0 Sodium 139 mmol/L 135-145 Bilirubin Total 1.1 mg/dL 0.4-1.5 Total Protein 6.8 GM/DL 6.2-8.1 BUN/Creatinine Ratio 17.3 8-20 Creatinine 1.1 mg/dL 0.5-1.4 Lipid Profile 01/07/2007 [facility] Cholesterol/HDL 4.56 1-4.97 (Trig/Chol/HDL) [phone] Ratio AVERAGE Cholesterol 164 mg/dL Less Than 200 63 Triglyceride 108 mg/dL 40-200 High Density Lipoprotein 36 mg/dL Low 40-60 64 Low Density Lipoprotein 106 mg/dL High Less Than 100 65 CBC With Electronic 01/07/2007 [facility] White Blood 5.8 CUMM 4.8- 10.8 Diff [phone] Count Abs Basophils 0 0-0.2 Abs Eosinophils 0.2 0-0.6 Absolute Neutrophil Count 3.8 1.5-7.7 Abs Lymphs 1.2 1.0-4.8 Abs Mononuclear 0.7 0-0.8 Basophil % 0.5 % 0-2 Hematocrit 44 % 42-52 Hemoglobin 15.2 g/dL 14.0-18.0 Eosinophil % 2.8 % 0-6 Gran % 64.9 % 38-83 Lymph % 20.5 % 20-45 Mean Corpuscular HGB Cone 35 g/dL 32-36 Mean Corpuscular Hemoglob 29 pg 27-31 Mean Corpuscular Volume 83 um3 80-94 Mean Platelet Volume 8.6 um3 7.4-10.4 Mononuclear % 11.3 % High 1-9 Platelet Count 197 CUMM 150-450 Red Cell Count 5.31 CUMM 4.6-6.2 Redcell Distribution WDTH 13 % 10.5-15 Comp Metabolic Panel 08/26/2006 [facility] One Over Creatinine 0.83 66 [phone] Anion Gap 4.0 mmol/L 2-11 67 Albumin/Globulin Ratio 1.7 1-3 Albumin 4.0 GM/DL 3.6-5.4 Alkaline Phosphatase 68 U/L 39-117 Alt (SGPT) 71 U/L High 17-63 Ast (Sgot) 65 U/L High 12-42 BUN 14 mg/dL 6-24 Calcium 8.8 mg/dL 8.7-10.2 Chloride 104 mmol/L 101-111 Co2 (Carbon Dioxide) 32.0 mmol/L 22-32 Globulin 2.4 GM/DL 2-4 Glucose 164 mg/dL High 70-105 Potassium 4.7 mmol/L 3.5-5.0 Sodium 140 mmol/L 135-145 68 Bilirubin Total 0.8 mg/dL 0.4-1.5 Total Protein 6.4 GM/DL 6.2-8.1 BUN/Creatinine Ratio 11.7 8-20 Creatinine 1.2 mg/dL 0.5-1.4 Lipid Profile 08/26/2006 [facility] Cholesterol/HDL 5.84 High 1-4.97 (Trig/Chol/HDL) [phone] Ratio AVERAGE Cholesterol 187 mg/dL Less Than 200 69 Triglyceride 287 mg/dL High 40-200 High Density Lipoprotein 32 mg/dL Low 40-60 70 Low Density Lipoprotein 98 mg/dL Less Than 100 71 Laboratory test finding 08/23/2006 [facility]. CK 152 U/L 26 -190 LABORATORY [phone] Troponin-I 0.0 NG/ML 0.0-0.6 72 Laboratory test finding 08/22/2006 [facility] CK 183 U/L 26 -190 LABORATORY [phone] Troponin-I 0.0 NG/ML 0.0-0.6 73 CBS W/Automated 08/22/2006 [facility]. White Blood 5.5 K/uL 3.4-10.5 Diff LABORATORY Count [phone] Red Blood Count 4.65 M/uL 4.20-5.80 Hemoglobin 13.5 gm/dL 12.8-17.0 Hematocrit 39.2 % 38.0-48.0 Mean Cell Volume 84.3 fL 80.0-96.0 Mean Corpuscular HGB 29.0 pg 27.0-33.0 Mean Corpuscular HGB Conc 34.4 g/dL 31.7-36.0 Platelet Count 196 K/uL 150-400 Red Cell Distri Width %CV 13.9 % 11.6-15.8 Mean Platelet Volume 7.0 fl 6.6-10.6 Neut% 62.8 % 33.0-73.0 Lymph % 24.3 % 17.0-56.0 [place] % 5.8 % 0.0-10.0 Eo% 3.5 % 0.0-5.0 Bas% 0.9 % 0.1-1.0 [place]% 2.7 % 0.0-4.0 Neut# 3.5 K/uL 1.8-7.0 Lymph # 1.3 K/uL 1.2-4.0 [place] # 0.3 K/uL 0.0-0.6 Eos # 0.2 K/uL 0.0-0.5 Baso # 0.1 K/uL 0.1-0.2 Neel# 0.2 0.0-1.5 Laboratory test 08/22/2006 [facility]. D-Dimer, < 0.22 74 finding LABORATORY Quantitative ug/mL [phone] Laboratory test 08/22/2006 [facility]. CK 166 U/L 26-19 finding LABORATORY 0 [phone] Troponin-I 0.0 NG/ML 0.0-0.6 75 Basic Metabolic Panel 08/22/2006 [facility]. Glucose 107 mg/dL 76-115 LABORATORY [phone] BUN 19 mg/dL 5-23 Creatinine 1.2 mg/dL 0.5-1.4 BUN/Creat 15.8 Sodium 142 mEq/L 136-145 Potassium 4.0 mEq/L 3.5-5.1 Chloride 105 mEq/L 98-107 Carbon Dioxide 30 mEq/L 21-32 Anion Gap 11 mEq/L 8-16 Calcium 8.5 mg/dL 8.5-10.1 Basic Metabolic Panel 07/22/2006 [facility] Over Creatinine 0.83 [phone] Anion Gap 8.0 mmol/L 2-11 76 BUN 21 mg/dL 6-24 Calcium 9.2 mg/dL 8.7-10.2 Chloride 97 mmol/L Low 101-111 Co2 (Carbon Dioxide) 30.0 mmol/L 22-32 Glucose 368 mg/dL High 70-105 Potassium 4.7 mmol/L 3.5-5.0 Sodium 135 mmol/L 135-145 BUN/Creatinine Ratio 17.5 8-20 Creatinine 1.2 mg/dL 0.5-1.4 Laboratory test 07/08/2006 [facility] Hemoglobin A1c 8.8 % High <6.0 77 finding [phone] Lipid Profile 07/08/2006 [facility] Cholesterol/HDL 7.34 AVERAGE High 1-4.97 (Trig/Chol/HDL) [phone] Ratio Cholesterol 235 mg/dL High Less Than 200 78 Triglyceride 403 mg/dL High 40-200 High Density Lipoprotein 32 mg/dL Low 40-60 79 Comp Metabolic Panel 07/08/2006 [facility] Over Creatinine 0.90 [phone] Anion Gap 10.0 mmol/L 2-11 80 Albumin/Globulin Ratio 1.7 1-3 Albumin 4.1 GM/DL 3.6-5.4 Alkaline Phosphatase 73 U/L 39-117 Alt (SGPT) 83 U/L High 17-63 Ast (Sgot) 60 U/L High 12-42 BUN 13 mg/dL 6-24 Calcium 9.1 mg/dL 8.7-10.2 Chloride 98 mmol/L Low 101-111 Co2 (Carbon Dioxide) 28.0 mmol/L 22-32 Globulin 2.4 GM/DL 2-4 Glucose 161 mg/dL High 70-105 Potassium 4.3 mmol/L 3.5-5.0 Sodium 136 mmol/L 135-145 Bilirubin Total 1.0 mg/dL 0.4-1.5 Total Protein 6.5 GM/DL 6.2-8.1 BUN/Creatinine Ratio 15.5 8-20 Creatinine 1.1 mg/dL 0.5-1.4 Surgical 06/10/2006 [facility] Surgical <SEE 81 Pathology [phone] Pathology NOTE> Laboratory test 11/26/2005 [facility] Vitamin B12 354 pg/mL 180- finding [phone] Hemoglobin A1c 6.5 % High <6.0 82 Retic Count 11/26/2005 [facility] Corrected Retic 1.4 % 0.5-1.5 [phone] Hematocrit For Retic Coun 42 % 42-52 Maturation Factor 1.0 RBC Retic Count 5.02 CUMM 4.6-6.2 Reticulocyte Count 1.45 % 0.5-1.5 Immature Retic Fraction 0.43 Mean Retic Volume 103.7 Retic Index 1.4 Iron & Iron Binding 11/26/2005 [facility] Iron Total 116 g/dL 45- 182 Capacity [phone] Unsaturated Iron Binding 325 g/dL Total Iron Binding Capacity 441 g/dL 250-450 % Iron Saturation 26 % 15-55 Transferrin 314.9 Laboratory test finding 11/26/2005 [facility] Ferritin 62 NG/ML 24- 336 [phone] Folic Acid > 20.0 NG/ML High 2.2-18.3 CBC With Manual 11/26/2005 [facility] White Blood Count 5.0 CUMM 4.8 -10.8 Diff [phone] Hematocrit 42 % 42-52 Hemoglobin 14.5 g/dL 14.0-18.0 Mean Corpuscular HGB Cone 35 g/dL 32-36 Mean Corpuscular Hemoglob 29 pg 27-31 Mean Corpuscular Volume 84 um3 80-94 Mean Platelet Volume 8.9 um3 7.4-10.4 Platelet Count 219 CUMM 150-450 Polysegmented Neutrophil 58 % 38-83 Red Cell Count 5.02 CUMM 4.6-6.2 Redcell Distribution WDTH 14 % 10.5-15 Absolute Neutrophil Count 3.1 Atypical Lymph 3 % 0-6 Anisocytosis SLIGHT Band Neutrophil 4 % 0-8 Basophil 2 % 0-2 Eosenophil 2 % 0-6 Lymphocyte 23 % 5-47 Metamyelocyte 1 % 0-2 Monocyte 7 % 0-13 Laboratory test 08/22/2005 [facility] PSA Screening 0.52 NG/ML 0.00- 4.00 83, 84 finding [phone] Liver Function 08/22/2005 [facility] Albumin/Globul 1.7 1-3 Panel [phone] in Ratio Albumin 3.8 GM/DL 3.6-5.4 Alkaline Phosphatase 68 U/L 39-117 Alt (SGPT) 37 U/L 17-63 Ast (Sgot) 35 U/L 12-42 Bilirubin Direct 0.1 mg/dL 0.1-0.5 Globulin 2.2 GM/DL 2-4 Indirect Bilirubin 0.7 mg/dL 0.1-0.75 Bilirubin Total 0.8 mg/dL 0.4-1.5 Total Protein 6.0 GM/DL Low 6.2-8.1 CBC With Electronic 08/22/2005 [facility] White Blood 6.2 CUMM 4.8- 10.8 Diff [phone] Count Abs Basophils 0 0-0.2 Abs Eosinophils 0.2 0-0.6 Absolute Neutrophil Count 4.0 1.5-7.7 Abs Lymphs 1.5 1.0-4.8 Abs Mononuclear 0.5 0-0.8 Basophil % 0.5 % 0-2 Hematocrit 38 % Low 42-52 Hemoglobin 13.2 g/dL Low 14.0-18.0 Eosinophil % 3.3 % 0-6 Gran % 63.6 % 38-83 Lymph % 23.8 % 20-45 Mean Corpuscular HGB Cone 35 g/dL 32-36 Mean Corpuscular Hemoglob 29 pg 27-31 Mean Corpuscular Volume 84 um3 80-94 Mean Platelet Volume 8.5 um3 7.4-10.4 Mononuclear % 8.8 % 1-9 Platelet Count 224 CUMM 150-450 Red Cell Count 4.51 CUMM Low 4.6-6.2 Redcell Distribution WDTH 13 % 10.5-15 Laboratory test finding 08/22/2005 [facility] Hemoglobin A1c 6.1 % High <6.0 85 [phone] Glucose 79 mg/dL 70-105 Lipid Profile 06/07/2005 [facility] Cholesterol 265 mg/dL High Less Than 86 (Trig/Chol/HDL) [phone] 200 Triglyceride 284 mg/dL High 40-200 High Density Lipoprotein 40 mg/dL 40-60 Low Density Lipoprotein 168 mg/dL High Less Than 100 87 Cholesterol/HDL Ratio 6.63 AVERAGE High 1-4.97 Comp Metabolic Panel 06/07/2005 [facility] One Over Creatinine 1.00 [phone] Anion Gap 6.0 mmol/L 2-11 88 Albumin/Globulin Ratio 1.9 1-3 Albumin 4.3 GM/DL 3.6-5.4 Alkaline Phosphatase 68 U/L 39-117 Alt (SGPT) 62 U/L 17-63 Ast (Sgot) 48 U/L High 12-42 BUN 18 mg/dL 6-24 Calcium 9.5 mg/dL 8.7-10.2 Chloride 102 mmol/L 101-111 Co2 (Carbon Dioxide) 30.0 mmol/L 22-32 Globulin 2.3 GM/DL 2-4 Glucose 147 mg/dL High 70-105 Potassium 4.4 mmol/L 3.5-5.0 Sodium 138 mmol/L 135-145 Bilirubin Total 1.1 mg/dL 0.4-1.5 Total Protein 6.6 GM/DL 6.2-8.1 BUN/Creatinine Ratio 18.0 8-20 Creatinine 1.0 mg/dL 0.5-1.4 Laboratory test 06/07/2005 [facility] Hemoglobin A1c 7.3 % High <6.0 89 finding [phone] CBC With Manual 06/07/2005 [facility] White Blood 5.8 CUMM 4.8-10.8 Diff [phone] Count Hematocrit 42 % 42-52 Hemoglobin 14.6 g/dL 14.0-18.0 Mean Corpuscular HGB Cone 35 g/dL 32-36 Mean Corpuscular Hemoglob 29 pg 27-31 Mean Corpuscular Volume 83 um3 80-94 Mean Platelet Volume 8.4 um3 7.4-10.4 Platelet Count 222 CUMM 150-450 Polysegmented Neutrophil 56 % 38-83 Red Cell Count 5.06 CUMM 4.6-6.2 Redcell Distribution WDTH 13 % 10.5-15 Absolute Neutrophil Count 3.2 Atypical Lymph 6 % 0-6 Anisocytosis SLIGHT Basophil 1 % 0-2 Eosenophil 2 % 0-6 Lymphocyte 24 % 5-47 Monocyte 11 % 0-13 NRBC 1 High 0-0 Polychromasia SLIGHT Laboratory test finding 02/21/2005 [facility] TSH 1.78 MIU/ML 0.34- 5.60 [phone] 1 Because ethnic data is not always readily available, this report includes an eGFR for both -Americans and non- Americans. The National Kidney Disease Education Program (NKDEP) does not endorse the use of the MDRD equation for patients that are not between the ages of 18 and 70, are , have extremes of body size, muscle mass, or nutritional status, or are non- or non-. According to the National Kidney Foundation, irrespective of diagnosis, the stage of the disease is based on the level of kidney function: Stage Description GFR(mL/min/1.73 m(2)) 1 Kidney damage with normal or decreased GFR 90 2 Kidney damage with mild decrease in GFR 60-89 3 Moderate decrease in GFR 30-59 4 Severe decrease in GFR 15-29 5 Kidney failure <15 (or dialysis) 2 Desirable: <150 Borderline High: 150-199 High: 200-499 Very High: >500 3 Desirable: <200 Borderline High: 200-239 High: >239 4 Low: <40 Desirable: 40-60 High: >60 5 Desirable: <100 Near Optimal: 100-129 Borderline High: 130-159 High: 160-189 Very High: >189 6 Because ethnic data is not always readily available, this report includes an eGFR for both -Americans and non- Americans. The National Kidney Disease Education Program (NKDEP) does not endorse the use of the MDRD equation for patients that are not between the ages of 18 and 70, are , have extremes of body size, muscle mass, or nutritional status, or are non- or non-. According to the National Kidney Foundation, irrespective of diagnosis, the stage of the disease is based on the level of kidney function: Stage Description GFR(mL/min/1.73 m(2)) 1 Kidney damage with normal or decreased GFR 90 2 Kidney damage with mild decrease in GFR 60-89 3 Moderate decrease in GFR 30-59 4 Severe decrease in GFR 15-29 5 Kidney failure <15 (or dialysis) 7 FASTING 12 HOUR 8 Normal Range 180 to 914 Indeterminate Range 145 to 180 Deficient Range <145 9 FASTING 12 HOUR 10 FASTING 12 HOUR 11 FASTING 12 HOUR 12 RESULT: REFERENCE VALUE Not Applicable 13 RESULT: :19 DQ Serologic Equivalent: REFERENCE VALUE Not Applicable 14 The absence of HLA celiac permissive genes would make the presence of celiac disease unlikely. ADDITIONAL INFORMATION Method: Molecular typing of HLA antigens performed using reverse SSOP and/or SSP methods, reported as serological equivalents and low to medium resolution molecular values. Performing Laboratory CLIA# [id number] Test Performed by: [place] [id number] REFERENCE VALUE <4.0 (Negative) Test Performed by: [place] [address] 16 Negative serology. Celiac disease unlikely. However, approximately 10% of patients with celiac disease are seronegative. Also, patients who are already adhering to a gluten-free diet may be seronegative. If celiac disease is highly clinically suspected, consider HLA-DQ typing. Test Performed by: [place] [address] 17 Desirable: <150 Borderline High: 150-199 High: 200-499 Very High: >500 18 Desirable: <200 Borderline High: 200-239 High: >239 19 Low: <40 Desirable: 40-60 High: >60 20 Desirable: <100 Near Optimal: 100-129 Borderline High: 130-159 High: 160-189 Very High: >189 21 No bands detected 22 No bands detected 23 Specific serologic response to B. burgdorferi infection is not detected, but cannot rule out early infection during which low or undetectable antibody levels to B. burgdorferi may be present. If clinically indicated, a new serum specimen should be submitted in 7-14 days. ADDITIONAL INFORMATION Per CDC criteria, the Lyme IgG Immunoblot is interpreted as positive if IgG-class antibodies are detected to >=5 B. burgdorferi proteins, and the Lyme IgM Immunoblot is interpreted as positive if IgM-class antibodies are detected to >=2 B. burgdorferi proteins. Immunoblot patterns not meeting these criteria should not be interpreted as positive. Epitopes from certain B. burgdorferi proteins (e.g., p41) are conserved across other bacteria, which may lead to the detection of IgM- and/or IgG-class antibodies on the Lyme disease immunoblots in patients without Lyme disease. Immunoblot should only be ordered on specimens that are positive or equivocal by a FDA-licensed Lyme disease antibody screening test (e.g., EIA). Results of the Lyme IgM immunoblot should not be considered in patients with >=30 days of symptoms. Test Performed by: [facility] - [address] [address] 24 ADDITIONAL INFORMATION This test was developed and its performance characteristics determined by [facility] in a manner consistent with CLIA requirements. This test has not been cleared or approved by the U.S. Food and Drug Administration. 25 ADDITIONAL INFORMATION This test was developed and its performance characteristics determined by [facility] in a manner consistent with CLIA requirements. This test has not been cleared or approved by the U.S. Food and Drug Administration. 26 ADDITIONAL INFORMATION This test was developed and its performance characteristics determined by [facility] in a manner consistent with CLIA requirements. This test has not been cleared or approved by the U.S. Food and Drug Administration. Test Performed by: [address] [address] 27 Because ethnic data is not always readily available, this report includes an eGFR for both -Americans and non- Americans. The National Kidney Disease Education Program (NKDEP) does not endorse the use of the MDRD equation for patients that are not between the ages of 18 and 70, are , have extremes of body size, muscle mass, or nutritional status, or are non- or non-. According to the National Kidney Foundation, irrespective of diagnosis, the stage of the disease is based on the level of kidney function: Stage Description GFR(mL/min/1.73 m(2)) 1 Kidney damage with normal or decreased GFR 90 2 Kidney damage with mild decrease in GFR 60-89 3 Moderate decrease in GFR 30-59 4 Severe decrease in GFR 15-29 5 Kidney failure <15 (or dialysis) 28 [id number] 29 SEE RESULT BELOW Name: LEIDA BATRES : [address]: Erick Parker MD Acct: [id number] Unit: [id number] AGE: 56 Location: [facility] Re05/27/17 SEX: M Status: DEP REF SPEC: [id number] RICHAR: 05/27/17-1010 [facility] [address]: Erick Parker MD REQ: [id number] RECD: 05/27/17994 STATUS: BOYD MANN DR: Fransico Vilchis DO _ SOURCE: GAS ANTRUM SPDESC: ORDERED: Clotest COMMENTS: [id number] Procedure Result Reported Site Clotest Final 05/28/17707 ML Clotest Negative * ML - Main Lab . END OF REPORT DEPARTMENT OF PATHOLOGY, [address] [place] [address] Miller Abraham M.D. Director [facility] # [id number] SEE RESULT BELOW Name: GISELLEIDA [place] : [address]: Erick Parker MD Acct: [id number] Unit: [id number] AGE: 56 Location: [facility] Re05/27/17 SEX: M Status: DEP REF SPEC: [id number] RICHAR: 05/27/17-1013 [facility] [address]: Erick Parker MD REQ: [id number] RECD: 05/27/17-1555 STATUS: DEE MANN DR: Fransico Vilchis DO _ ORDERED: LEVEL 4/3 COMMENTS: [id number] FINAL DIAGNOSIS 1. Esophagus, at 36 cm, biopsy: -- Squamous and columnar mucosa with chronic inflammation and intestinal metaplasia. -- Dysplasia is absent. 2. Esophagus, at 34 cm, biopsy: -- Columnar-type mucosa with chronic inflammation and intestinal metaplasia. -- Dysplasia is absent. 3. Colon, sigmoid, biopsy: -- Tubular adenoma. -- No high grade dysplasia or malignancy. 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 symmetric; esophagus ? normal, SC approximately 33, irregular, smooth ? biopsied x2 at 34 and x3 at 36, moderate hiatal hernia; stomach ? normal, CLOtest; duodenum ? normal. Colon: Excellent prep, mild sigmoid diverticulosis, loopy hepatic flexure, one small polyp. Conclusions/Plan: Ravi's - irregular 37-38 to 33, hiatal hernia; mild diverticulosis, sigmoid polyp GROSS DESCRIPTION 1. The specimen is received in formalin labeled, Biopsies Esophagus at 36, and consists of a 0.6 x 0.5 by up to 0.2 cm aggregate of mccarty-white irregular soft tissue fragments which is submitted entirely in one cassette. 2. The specimen is received in formalin labeled, Biopsies Esophagus at 34, and consists of CONTINUED ON NEXT PAGE DEPARTMENT OF PATHOLOGY, [address] [place] [address] Miller Abraham M.D. Director [facility] # [id number] RUN DATE: 05/28/17 [facility] LAB LIVE PAGE 2 Patient: LEIDA BATRES [id number] (Continued) GROSS DESCRIPTION (Continued) GROSS DESCRIPTION (Continued) two mccarty-pink irregular soft tissue fragments averaging 0.3 x 0.2 x 0.1 cm which are submitted entirely in one cassette. 3. The specimen is received in formalin labeled, Sigmoid Polyp, and consists of a 0.4 x 0.3 x 0.2 cm mccarty-white polypoid soft tissue fragment which is submitted entirely in one cassette. Signed (signature on file) Sinai Tripathi MD 1003 END OF REPORT DEPARTMENT OF PATHOLOGY, [address] [place] [address] Miller Abraham M.D. Director [facility] # [id number] FASTING 12 HOUR 33 Desirable <150 Borderline high 150-199 High 200-499 Very High >500 34 Desirable <200 Borderline high 200-239 High >239 35 Low <40 Desirable: 40-60 High: >60 36 Desirable: <100 mg/dL Near Optimal: 100-129 mg/dL Borderline High: 130-159 mg/dL High: 160-189 mg/dL Very High: >189 mg/dL 37 Unable to calculate due to low microalbumin 38 Because ethnic data is not always readily available, this report includes an eGFR for both -Americans and non- Americans. The National Kidney Disease Education Program (NKDEP) does not endorse the use of the MDRD equation for patients that are not between the ages of 18 and 70, are , have extremes of body size, muscle mass, or nutritional status, or are non- or non-. According to the National Kidney Foundation, irrespective of diagnosis, the stage of the disease is based on the level of kidney function: Stage Description GFR(mL/min/1.73 m(2)) 1 Kidney damage with normal or decreased GFR 90 2 Kidney damage with mild decrease in GFR 60-89 3 Moderate decrease in GFR 30-59 4 Severe decrease in GFR 15-29 5 Kidney failure <15 (or dialysis) 39 void, clear, yellow 40 Normal Range 180 to 914 Indeterminate Range 145 to 180 Deficient Range <145 41 Because ethnic data is not always readily available, this report includes an eGFR for both -Americans and non- Americans. The National Kidney Disease Education Program (NKDEP) does not endorse the use of the MDRD equation for patients that are not between the ages of 18 and 70, are , have extremes of body size, muscle mass, or nutritional status, or are non- or non-. According to the National Kidney Foundation, irrespective of diagnosis, the stage of the disease is based on the level of kidney function: Stage Description GFR(mL/min/1.73 m(2)) 1 Kidney damage with normal or decreased GFR 90 2 Kidney damage with mild decrease in GFR 60-89 3 Moderate decrease in GFR 30-59 4 Severe decrease in GFR 15-29 5 Kidney failure <15 (or dialysis) 42 FASTING 43 Because ethnic data is not always readily available, this report includes an eGFR for both -Americans and non- Americans. The National Kidney Disease Education Program (NKDEP) does not endorse the use of the MDRD equation for patients that are not between the ages of 18 and 70, are , have extremes of body size, muscle mass, or nutritional status, or are non- or non-. According to the National Kidney Foundation, irrespective of diagnosis, the stage of the disease is based on the level of kidney function: Stage Description GFR(mL/min/1.73 m(2)) 1 Kidney damage with normal or decreased GFR 90 2 Kidney damage with mild decrease in GFR 60-89 3 Moderate decrease in GFR 30-59 4 Severe decrease in GFR 15-29 5 Kidney failure <15 (or dialysis) 44 Desirable <150 Borderline high 150-199 High 200-499 Very High >500 45 Desirable <200 Borderline high 200-239 High >239 46 Low <40 Desirable: 40-60 High: >60 47 Desirable: <100 mg/dL Near Optimal: 100-129 mg/dL Borderline High: 130-159 mg/dL High: 160-189 mg/dL Very High: >189 mg/dL 48 Because ethnic data is not always readily available, this report includes an eGFR for both -Americans and non- Americans. The National Kidney Disease Education Program (NKDEP) does not endorse the use of the MDRD equation for patients that are not between the ages of 18 and 70, are , have extremes of body size, muscle mass, or nutritional status, or are non- or non-. According to the National Kidney Foundation, irrespective of diagnosis, the stage of the disease is based on the level of kidney function: Stage Description GFR(mL/min/1.73 m(2)) 1 Kidney damage with normal or decreased GFR 90 2 Kidney damage with mild decrease in GFR 60-89 3 Moderate decrease in GFR 30-59 4 Severe decrease in GFR 15-29 5 Kidney failure <15 (or dialysis) 49 REFERENCE VALUE 25-HYDROXY D TOTAL (D2+D3) Optimum levels in the healthy population are 20-50, patients with bone disease may benefit from higher levels within this range. Test Performed by: [address] [address] Document Restorer: Mode Chinchilla M.D. 50 RUN DATE: 07/10/13 [facility] LAB LIVE PAGE 1 RUN TIME: [address] [place] [address] Specimen Inquiry Name: LEIDA BATRES : [address]: Fransico Vilchis DO Acct: [id number] Unit: [id number] AGE: 53 Location: [facility] Re07/08/13 SEX: M Status: REG REF SPEC: [id number] RICHAR: 07/08/13-[address]: Fransico Vilchis DO REQ: [id number] RECD: 07/08/13 STATUS: COMP _ SOURCE: URINE SPDESC: ORDERED: GC/Chlam RNA QUERIES: Medent Number [id number] Procedure Result Verified Site Chlamydia Trachomatis RNA Final 07/10/13- 1432 ML NEGATIVE for Chlamydia trachomatis rRNA GC (N. gonorrhoeae) RNA Final 07/10/13- 1425 ML NEGATIVE for Neisseria gonorrhoeae rRNA A negative result does not preclude the presence of a C. trachomatis or N. gonorrhoeae infection because results are dependent on adequate specimen collection, absence of inhibitors, and sufficient rRNA to be detected. Test results may be affected by improper specimen collection, improper storage, technical error, or specimen mixup. Limitations of the Procedure: The Aptima Combo 2 Assay is not intended for the evaluation of suspected sexual abuse or for other medico-legal indications. For those patients for whom a false positive result may have adverse psychosocial impact, the [facility] recommends retesting by a method using an alternate technology. Therapeutic failure or success cannot be determined with the Aptima Combo 2 Assay since nucleic acid may persist following appropriate antimicrobial therapy. Results from the Aptima Combo 2 Assay should be interpreted in conjunction with other laboratory and clinical data available to the clinican. CONTINUED ON NEXT PAGE * ML=Testing performed at Main Lab DEPARTMENT OF PATHOLOGY, [facility] [place] [address] Miller Abraham M.D. Director [facility] # [id number] RUN DATE: 07/10/13 [facility] LAB LIVE PAGE 2 RUN TIME: [address] [place] [address] Specimen Inquiry Patient: GISELLEIDA Savannah [id number] (Continued) Specimen: [id number] Collected: 07/08/13 Received: 07/08/13-1819 (Continued) Procedure Result Verified Site GC (N. gonorrhoeae) RNA Final (continued) 07/10/13- 1425 Performance characteristics for detecting C. trachomatis and N. gonorrhoeae are derived from high prevalence populations. Positive results in low prevalence populations should be interpreted carefully with the understanding that the likelihood of a false positive may be higher than a true positive. END OF REPORT * ML=Testing performed at Main Lab DEPARTMENT OF PATHOLOGY, [address] [place] [address] Miller Abraham M.D. Director [facility] # [id number] 51 Microalbuminuria in a random sample is defined as: Microalbumin/Creatinine ratio of 30-299 ug/mg. 52 -- REFERENCE VALUE -- 25-HYDROXY D TOTAL (D2+D3) Optimum levels in the healthy population are 20-50, patients with bone disease may benefit from higher levels within this range. Test Performed by: [facility] [address] [address] Document Restorer: Bernabe Estevez III, M.D. 53 Because ethnic data is not always readily available, this report includes an eGFR for both -Americans and non- Americans. The National Kidney Disease Education Program (NKDEP) does not endorse the use of the MDRD equation for patients that are not between the ages of 18 and 70, are , have extremes of body size, muscle mass, or nutritional status, or are non- or non-. According to the National Kidney Foundation, irrespective of diagnosis, the stage of the disease is based on the level of kidney function: Stage Description GFR(mL/min/1.73 m(2)) 1 Kidney damage with normal or decreased GFR 90 2 Kidney damage with mild decrease in GFR 60-89 3 Moderate decrease in GFR 30-59 4 Severe decrease in GFR 15-29 5 Kidney failure <15 (or dialysis) 54 Serum levels of PSA measured using the AxialMED DXI Hybritech immunoassay should not be interpreted as absolute evidence of the presence or absence of disease. The PSA value should be used in conjunction with other pertinent clinical diagnostic procedures. The values obtained with different assay methods or kits cannot be used interchangeably. 55 HDL Interpretation: Undesirable: High Risk: Less than 40 mg/dL Desirable: Low Risk: Greater than 60 mg/dL 56 LDL Interpretation: Low Risk Optimal Level: LDL Less than 100 mg/dL Near or Above Optimal: LDL 100-129 mg/dL Borderline High Risk: LDL 130-159 mg/dL High Risk: LDL 160-189 mg/dL Very High Risk: LDL Greater than 189 mg/dL 57 Classification: Desirable . 58 Classification: Low . 59 CALCULATED LDL APPROXIMATES THE VALUE OF A DIRECT LDL MEASUREMENT. Classification: Optimal Level . 60 Anion gap measurement may be of limited value in the presence of any alkalosis, especially in a combined acid base disorder. . 61 THERAPEUTIC TARGET FOR THE TREATMENT OF DIABETES MELLITUS PATIENTS IS <7% HBA1C, AND IN SELECTIVE PATIENTS <6.0%. PLEASE REFER TO [employer] DIABETIC CARE GUIDELINES FOR FURTHER INFORMATION. 62 Anion gap measurement may be of limited value in the presence of any alkalosis, especially in a combined acid base disorder. . 63 Classification: Desirable . 64 Classification: Low . 65 CALCULATED LDL APPROXIMATES THE VALUE OF A DIRECT LDL MEASUREMENT. Classification: Near or above optimal . 66 results given via phone 67 Anion gap measurement may be of limited value in the presence of any alkalosis, especially in a combined acid base disorder. . 68 . 69 Classification: Desirable . 70 Classification: Low . 71 CALCULATED LDL APPROXIMATES THE VALUE OF A DIRECT LDL MEASUREMENT. Classification: Optimal Level . 72 0 - 0.6 NG/ML: NO EVIDENCE OF MYOCARDIAL INJURY 0.7 - 1.5 NG/ML: MILD ELEVATION, SUGGESTING POSSIBLE MYOCARDIAL INJURY > 1.5 NG/ML: CONSISTENT WITH MYOCARDIAL INJURY 73 0 - 0.6 NG/ML: NO EVIDENCE OF MYOCARDIAL INJURY 0.7 - 1.5 NG/ML: MILD ELEVATION, SUGGESTING POSSIBLE MYOCARDIAL INJURY > 1.5 NG/ML: CONSISTENT WITH MYOCARDIAL INJURY 74 Note: [facility] has established a 97.89% negative predictive value for thrombotic disease when a cutoff value of 0.5 ug/mL is used. Additional performance parameters for local prevalence of 94.4% as follows: PPV: 9.92%, Sensitivity: 76.47%, Specificity: 61.12% 75 0 - 0.6 NG/ML: NO EVIDENCE OF MYOCARDIAL INJURY 0.7 - 1.5 NG/ML: MILD ELEVATION, SUGGESTING POSSIBLE MYOCARDIAL INJURY > 1.5 NG/ML: CONSISTENT WITH MYOCARDIAL INJURY 76 Anion gap measurement may be of limited value in the presence of any alkalosis, especially in a combined acid base disorder. . 77 THERAPEUTIC TARGET FOR THE TREATMENT OF DIABETES MELLITUS PATIENTS IS <7% HBA1C, AND IN SELECTIVE PATIENTS <6.0%. PLEASE REFER TO [employer] DIABETIC CARE GUIDELINES FOR FURTHER INFORMATION. 78 Classification: Borderline High . 79 Classification: Low . 80 Anion gap measurement may be of limited value in the presence of any alkalosis, especially in a combined acid base disorder. . 81 ---- RUN DATE: 06/12/06 [facility] NMI LIVE PAGE 1 RUN TIME: 1126 Specimen Inquiry RUN USER: INTERFACE [id number] LEIDA BATRES <REG REF 06/10> ([id number]) 2ESHELLEY Parker MD, Erick -- Specimen: [id number] Spec Date: 06/10/[address]: Erick sarkar MD Spec Type: SURGICAL P Received: 06/10/06-1316 Copies to: [facility] SPECIMEN 1) BIOPSY GASTRIC ANTRUM 2) BIOPSY ESOPHAGOGASTRIC JUNCTION AT 38 CM. HISTORY CLINICAL INFORMATION: Patient with rectal bleeding with diarrhea only and gastroesophageal reflux disease, and anemia. GROSS DESCRIPTION 1) The specimen is received in formalin labelled Leida Batres, Biopsy Gastric Antrum, and consists of three, 0.2 cm. pink bits. Total, one block. 2) The specimen is received in formalin labelled Leida Malik Batres, Biopsy Gastroesophageal Junction at 38 cm., and consists of multiple, 0.1 cm. pink bits. Total, one block. DIAGNOSIS 1) Gastric antrum, biopsy - A) Diffuse mild chronic inactive gastritis. B) Reactive gastropathy. C) No active gastritis, granulomas, intestinal metaplasia, dysplasia, or malignancy. 2) Gastroesophageal junction at 38 cm., biopsy - A) Squamocolumnar junction with intestinal metaplasia. B) Moderate chronic inflammation. C) Reactive glandular atypia. D) No dysplasia or malignancy. Signed Electronically by: SNHEA CANNON MD 06/12/06 -- -- DEPARTMENT OF PATHOLOGY, [address] [place] [address] [facility] Permit #[id number] Sneha Cannon II, M.D. Director Miller Abraham M.D. Licensed Therapist D irector -- 82 THERAPEUTIC TARGET FOR THE TREATMENT OF DIABETES MELLITUS PATIENTS IS <7% HBA1C, AND IN SELECTIVE PATIENTS <6.0%. PLEASE REFER TO [employer] DIABETIC CARE GUIDELINES FOR FURTHER INFORMATION. 83 BLOOD SMEAR 84 * SERUM LEVELS OF PSA MEASURED USING THE EUSEBIA [employer] ACCESS HYBRITECH IMMUNOASSAY SHOULD NOT BE INTERPRETED ABSOLUTE EVIDENCE OF THE PRESENCE OR ABSENCE OF DISEASE. THE PSA VALUE SHOULD BE USED IN CONJUNCTION WITH OTHER PERTINENT CLINICAL DIAGNOSTIC PROCEDURES. A PSA value in the range of 0.1 to 0.6 ng/ml is indeterminate if being used as an indicator of recurrent or residual disease. . 85 THERAPEUTIC TARGET FOR THE TREATMENT OF DIABETES MELLITUS PATIENTS IS <7% HBA1C, AND IN SELECTIVE PATIENTS <6.0%. PLEASE REFER TO [employer] DIABETIC CARE GUIDELINES FOR FURTHER INFORMATION. 86 Classification: High . 87 CALCULATED LDL APPROXIMATES THE VALUE OF A DIRECT LDL MEASUREMENT. Classification: High . 88 Anion gap measurement may be of limited value in the presence of any alkalosis, especially in a combined acid base disorder. . 89 THERAPEUTIC TARGET FOR THE TREATMENT OF DIABETES MELLITUS PATIENTS IS <7% HBA1C, AND IN SELECTIVE PATIENTS <6.0%. PLEASE REFER TO [employer] DIABETIC CARE GUIDELINES FOR FURTHER INFORMATION. Procedures Date Code Description Status 10/14/2017 [id number] Diabetic Foot Exam Completed 10/07/2017 30353 X-Ray Knee,Ap&Lateral Oblique Views Completed 05/27/2017 [id number] Colonoscopy Completed 03/14/2016 [id number] Diabetic Retinal Eye Exam Completed 08/29/2015 [id number] Visual Acuity Screening Test - for Dot exams Completed 09/27/2014 05272 Osteopathic Manipulative Treatment 1 Or 2 Body Region Completed 07/22/2006 75859 Visual Acuity Screening Test Completed Encounters Type Date Location Provider Dx Diagnosis Office Visit 04/14/2018 Main Office Fransico Vilchis, E11.65 Type 2 diabetes 4:30p D.O. 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 mellitus with hyperglycemia R60.0 Localized edema Z79.4 USP (current) use of insulin J45.21 Mild intermittent asthma with (acute) exacerbation Office Visit 04/02/2018 9:00a Main Office Cydney Flores PA R60.0 Localized edema I10 Essential (primary) hypertension Office Visit 01/06/2018 4:30p Main Office Fransico Vilchis, E11.65 Type 2 diabetes D.O. mellitus with hyperglycemia R74.0 Nonspec elev of levels of transamns & lactic acid dehydrgnse I10 Essential (primary) hypertension F41.9 Anxiety disorder, unspecified F51.8 Oth sleep disord not due to a sub or known physiol cond Office Visit 12/07/2017 11:15a Main Office Cydney Flores, I10 Essential ( primary) PA hypertension Office Visit 10/14/2017 1:30p Main Office Fransico Vilchis, M54.5 Low back pain D.O. F41.9 Anxiety disorder, unspecified F51.8 Oth sleep disord not due to a sub or known physiol cond I10 Essential (primary) hypertension M17.0 Bilateral primary osteoarthritis of knee M25.561 Pain in right knee M25.562 Pain in left knee Z79.4 USP (current) use of insulin Office Visit 10/07/2017 3:45p Main Office Fransico Vilchis, E11.65 Type 2 diabetes D.O. 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 mellitus with hyperglycemia Z79.4 USP (current) use of insulin G44.209 Tension-type headache, unspecified, not intractable I10 Essential (primary) hypertension F51.8 Oth sleep disord not due to a sub or known physiol cond F41.9 Anxiety disorder, unspecified Office Visit 03/14/2017 4:30p Main Office Fransico Vilchis E11.65 Type 2 diabetes D.O. mellitus with hyperglycemia Z79.4 USP (current) use of insulin Z12.11 Encounter for screening for malignant neoplasm of colon M62.830 Muscle spasm of back M54.5 Low back pain M54.6 Pain in thoracic spine Office Visit 11/12/2016 4:30p Main Office Fransico Vilchis, E11.65 Type 2 diabetes D.O. 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 mellitus with hyperglycemia R22.2 Localized swelling, mass and lump, trunk T38.3x5A Adverse effect of insulin and oral hypoglycemic drugs, init Z79.4 USP (current) use of insulin Office Visit 07/19/2016 4:30p Main Office Fransico Vilchis, E11.65 Type 2 diabetes D.O. mellitus with hyperglycemia Office Visit 08/29/2015 4:00p Main Office Fransico Vilchis E11.65 Type 2 diabetes D.O. mellitus with hyperglycemia Z02.4 Encounter for examination for driving license Office Visit 07/11/2015 10:45a Main Office Fransico Vilchis E11.65 Type 2 diabetes D.O. mellitus with hyperglycemia Z00.00 Encntr for general adult medical exam w/o abnormal findings Office Visit 04/27/2015 9:30a Main Office Lcjag Fransico, M62.830 Muscle spasm of D.O. back G44.209 Tension-type headache, unspecified, not intractable K21.9 Gastro-esophageal reflux disease without esophagitis M54.5 Low back pain D64.9 Anemia, unspecified Z91.030 Bee allergy status Office Visit 04/14/2015 12:55p Main Office Mame Fransico, G44.209 Tension -type D.O. headache, unspecified, not intractable K21.9 Gastro-esophageal reflux disease without esophagitis M62.830 Muscle spasm of back Office Visit 03/28/2015 8:55a Main Office Fransico Vilchis, E11.65 Type 2 diabetes D.O. mellitus with hyperglycemia Office Visit 12/28/2014 8:45a Main Office Fransico Vilchis, E11.65 Type 2 diabetes D.O. mellitus with hyperglycemia M54.5 Low back pain Z79.899 Other prison (current) drug therapy Office Visit 09/27/2014 8:55a Main Office Fransico Vilchis, 250.00 Diabetes Mellitus D.O. W/O Compl Type II Or Unspec Controlled 307.49 Sleep Disorder Other 339.10 Tension Type Headache, Unspecified 401.1 Hypertension Benign 300.00 Anxiety State Unspec 268.9 Vitamin D Deficiency Unspec 250.02 Diabetes Mellitus W/O Compl Type II Or Unspec Type Uncontrol 724.2 Lumbago 739.0 Lesion Nonallopathic Head Region Not Elsewhere Class 739.1 Lesion Nonallopathic Cervical Region Not Elsewhere Class Office Visit 06/28/2014 8:55a Main Office Fransico Vilchis, 250.00 Diabetes Mellitus D.O. W/O Compl Type II Or Unspec Controlled 268.9 Vitamin D Deficiency Unspec 401.1 Hypertension Benign 307.49 Sleep Disorder Other 300.00 Anxiety State Unspec Office Visit 03/29/2014 9:15a Main Office Fransico Vilchis, 250.00 Diabetes Mellitus D.O. W/O Compl Type II Or Unspec Controlled 268.9 Vitamin D Deficiency Unspec 307.49 Sleep Disorder Other 401.1 Hypertension Benign 250.02 Diabetes Mellitus W/O Compl Type II Or Unspec Type Uncontrol 787.3 Flatulence Eructation & Gas Pain V70.0 Examination General Medical Routine AT Health Care Facility Office Visit 12/24/2013 8:55a Main Office Fransico Vilchis, 250.02 Diabetes Mellitus D.O. W/O Compl Type II Or Unspec Type Uncontrol 250.00 Diabetes Mellitus W/O Compl Type II Or Unspec Controlled 307.49 Sleep Disorder Other Office Visit 09/21/2013 8:55a Main Office TyronFransico javier, 250.00 Diabetes Mellitus D.O. W/O Compl Type II Or Unspec Controlled 268.9 Vitamin D Deficiency Unspec 401.1 Hypertension Benign Office Visit 07/08/2013 1:45p Main Office Mame Fransico, 604.90 Orchitis & D.O. Epididymitis Unspec Office Visit 06/22/2013 9:15a Main Office Mame Fransico, 250.00 Diabetes Mellitus D.O. W/O Compl Type II Or Unspec Controlled 787.3 Flatulence Eructation & Gas Pain 268.9 Vitamin D Deficiency Unspec V76.51 Special Screening For Malignant Neoplasms Colon 401.1 Hypertension Benign 729.2 Neuralgia Neuritis & Radiculitis Unspec Office Visit 03/02/2013 11:15a Main Office MameFransico, 250.00 Diabetes Mellitus D.O. W/O Compl Type II Or Unspec Controlled 787.3 Flatulence Eructation & Gas Pain 268.9 Vitamin D Deficiency Unspec V76.51 Special Screening For Malignant Neoplasms Colon Office Visit 01/20/2013 11:00a Main Office MameFransico, 250.00 Diabetes Mellitus D.O. W/O Compl Type II Or Unspec Controlled 401.1 Hypertension Benign 466.0 Bronchitis Acute 300.00 Anxiety State Unspec 307.49 Sleep Disorder Other Office Visit 01/12/2013 2:00p Main Office MameFransico, 250.00 Diabetes Mellitus D.O. W/O Compl Type II Or Unspec Controlled 401.1 Hypertension Benign V70.0 Examination General Medical Routine AT Health Care Facility Office Visit 12/25/2006 3:00p Main Office klepack 250.00 Diabetes Mellitus W/O Compl Type II Or Unspec Controlled 272.0 Hypercholesterolemia Pure 401.1 Hypertension Benign 794.8 Liver Study Abnormal Office Visit 11/08/2006 10:00a Main Office raeannpack 250.00 Diabetes Mellitus W/O Compl Type II Or Unspec Controlled 272.0 Hypercholesterolemia Pure 401.1 Hypertension Benign 278.00 Obesity Unspec 553.1 Hernia Umbilical 553.8 Hernia Other Spec Sites Office Visit 08/26/2006 9:20a Main Office klepack 250.00 Diabetes Mellitus W/O Compl Type II Or Unspec Controlled 272.0 Hypercholesterolemia Pure 401.1 Hypertension Benign Office Visit 07/22/2006 1:45p Main Office klepack 250.00 Diabetes Mellitus W/O Compl Type II Or Unspec Controlled 272.0 Hypercholesterolemia Pure 372.00 Conjunctivitis Acute Unspec Office Visit 07/08/2006 8:45a Main Office klepack 250.00 Diabetes Mellitus W/O Compl Type II Or Unspec Controlled 272.0 Hypercholesterolemia Pure 401.1 Hypertension Benign 300.00 Anxiety State Unspec 701.9 Hypertrophic & Atrophic Conditions Of Skin Unspec Office Visit 01/14/2006 11:15a Main Office kle[facility] 300.00 Anxiety State Unspec 272.0 Hypercholesterolemia Pure Office Visit 01/04/2006 3:45p Main Office klepack 008.69 Enteritis Due To Other Viral Enteritis 300.00 Anxiety State Unspec Office Visit 11/26/2005 11:15a Main Office klepack 250.00 Diabetes Mellitus W/O Compl Type II Or Unspec Controlled 401.1 Hypertension Benign 285.9 Anemia Unspec 723.1 Cervicalgia Office Visit 07/02/2005 8:45a Main Office [facility]le[facility] 300.00 Anxiety State Unspec 250.00 Diabetes Mellitus W/O Compl Type II Or Unspec Controlled 401.1 Hypertension Benign 272.0 Hypercholesterolemia Pure 790.09 Other Abnormality Of Red Blood Cells Office Visit 06/07/2005 12:55p Main Office klepack 300.00 Anxiety State Unspec 250.00 Diabetes Mellitus W/O Compl Type II Or Unspec Controlled 401.1 Hypertension Benign Office Visit 03/12/2005 10:30a Main Office klepack 300.00 Anxiety State Unspec 272.0 Hypercholesterolemia Pure 250.00 Diabetes Mellitus W/O Compl Type II Or Unspec Controlled 401.1 Hypertension Benign Office Visit 02/21/2005 2:00p Main Office klepack 300.00 Anxiety State Unspec 785.1 Palpitations Plan of Treatment Future Appointment(s):07/14/2018 4:30 pm - Fransico Vilchis D.O. at Main [id number]/14/2018 - Fransico Vilchis D.O.E11.65 Type 2 diabetes mellitus with hyperglycemiaFollow up:3 months recheck DM with A1cZ79.4 termite renewal inspector (current) use of [id number] Essential (primary) [id number] Anxiety disorder, unspecified
[2018-05-12] MEDS ORDERED: Ondansetron ODT TAB* 4 MG SL ONE (19:42)
[2018-05-12] MEDS ORDERED: Ondansetron ODT TAB* 4 MG PO ONE (22:42)
[2018-05-12 23:16] VITALS: BP 120/89
--- NOTE | 2018-05-13 00:20 | ED ---
Abdominal Pain/Male - HPI Summary HPI Summary: The patient is a 57 y/o M presenting to [facility] with a chief complaint of sudden onset nausea starting at 1300 and vomiting starting at 1330 after eating. He was out to eat this afternoon when his friend noticed that the chicken they ate wasn't cooked all the way through. He states that he had some diarrhea, and the abd pain started as a result from vomiting. He hasn't eaten anything since vomiting, but he drank some water. He denies fever. There are no other aggravating or alleviating factors. Hx of HTN, and diabetes which he takes Lantus and Metformin. - History of Current Complaint Chief Complaint: EDNauseaVomitDiarrh Stated Complaint: VOMITING/DIARRHEA PER PT Time Seen by Provider: 05/12/18 22:33 Hx Obtained From: Patient Onset/Duration: Sudden Onset, Still Present Timing: Lasting Hours Severity Initially: Moderate Severity Currently: Moderate Pain Intensity: 0 Pain Scale Used: 0-10 Numeric Location: Diffuse Radiates: No Aggravating Factor(s): Nothing Alleviating Factor(s): Nothing Associated Signs And Symptoms: Positive: Nausea, Vomiting, Diarrhea - small amount. Negative: Fever - Allergies/Home Medications Allergies/Adverse Reactions: Allergies Allergy/AdvReac Type Severity Reaction Status Date / Time exenatide Allergy Unknown Verified 05/27/17 09:35 Reaction Details PMH/Surg Hx/FS Hx/Imm Hx Endocrine/Hematology History: Reports: Hx Diabetes - controlled Cardiovascular History: Reports: Hx Hypertension - controlled, Other Cardiovascular Problems/Disorders - Hx HTN Respiratory History: Reports: Hx Asthma - Wheezing r/t upper respiratory infections GI History: Reports: Other GI Disorders - Hx GERD Musculoskeletal History: Denies: Hx Rheumatoid Arthritis, Hx Osteoporosis - Surgical History Surgery Procedure, Year, and Place: 3 hernia repair, 2 inguinal and 1 umbilical , ear surgery at age 8, tonsillectomy as a child, repair to R middle finger Infectious Disease History: No Infectious Disease History: Denies: Hx Clostridium Difficile, Hx Hepatitis, Hx Human Immunodeficiency Virus (HIV), Hx of Known/Suspected MRSA, Hx Shingles, Hx Tuberculosis, Hx Known/ Suspected VRE, Hx Known/Suspected VRSA, History Other Infectious Disease, Traveled Outside the [place] in Last 30 Days - Family History Known Family History: Positive: Diabetes - Social History Alcohol Use: None Substance Use Type: Reports: None Smoking Status (MU): Former Smoker Have You Smoked in the Last Year: No Review of Systems Negative: Fever Positive: Abdominal Pain - due to vomiting, Vomiting, Diarrhea - small amount, Nausea All Other Systems Reviewed And Are Negative: Yes Physical Exam - Summary Physical Exam Summary: Appearance: Well-appearing, Well-nourished, lying in bed comfortably Skin: Warm, dry, no obvious rash Eyes: sclera anicteric, no conjunctival pallor ENT: mucous membranes moist, pharynx appears normal Neck: Supple, nontender Respiratory: Clear to auscultation, no signs of respiratory distress Cardiovascular: Normal S1, S2. No murmurs. Normal distal pulses in tibial and radial bilaterally. Abdomen: Soft, nontender, normal active bowel sounds present Musculoskeletal: Normal, Strength/ROM Intact Neurological: A&Ox3, awake and alert, mentation is normal, speech is fluent and appropriate Psychiatric: affect is normal, does not appear anxious or depressed Triage Information Reviewed: Yes Vital Signs On Initial Exam: Initial Vitals Temp Pulse Resp BP Pulse Ox 98.3 F 104 18 119/80 98 05/12/18 18:48 05/12/18 18:48 05/12/18 18:48 05/12/18 18:48 05/12/18 18:48 Vital Signs Reviewed: Yes Diagnostics - Vital Signs Vital Signs Temp Pulse Resp BP Pulse Ox 05/12/18 23:15 98.1 F 98 17 120/89 95 05/12/18 21:45 98.6 F 94 18 115/76 97 05/12/18 19:30 96.3 F 104 20 135/82 97 05/12/18 18:48 98.3 F 104 18 119/80 98 - Laboratory Lab Results: Lab Results 05/12/18 Range/Units 19:39 POC Glucose (mg/dL) 167 H (70-100) mg/dL Lab Statement: Any lab studies that have been ordered have been reviewed, and results considered in the medical decision making process. Abdominal Pain Male Course/Dx - Course Course Of Treatment: The patient is a 57 y/o with a chief complaint of sudden onset nausea starting at 1300 and vomiting starting at 1330 after eating. He was out to eat this afternoon when his friend noticed that the chicken they ate wasn't cooked all the way through. He states that he had some diarrhea, and the abd pain started as a result from vomiting. He hasn't eaten anything since vomiting, but he drank some water. He denies fever. Hx of HTN, and diabetes which he takes Lantus and Metformin. Upon physical examination, there are no acute abnormalities. In the ED course, the patient was administered Zofran, which alleviated his symptoms. He is diagnosed with acute nausea and vomiting. He will be discharged home with prescription for Zofran as needed. He agrees with this plan and understands the need for return to the ED for any new or worsening symptoms. - Diagnoses Provider Diagnoses: Nausea & vomiting Discharge - Sign-Out/Discharge Documenting (check all that apply): Patient Departure - Patient will be discharged home. Patient Received Moderate/Deep Sedation with Procedure: No - Discharge Plan Condition: Improved Disposition: HOME Prescriptions: Ondansetron ODT TAB* [Zofran 4 MG Odt TAB*] 8 mg PO Q6H PRN #14 tab.odt PRN Reason: Nausea Patient Education Materials: Acute Nausea and Vomiting (ED) Referrals: Fransico Vilchis DO [Primary Care Provider] - 3 Days (if not improving) Additional Instructions: Take half your normal dose on insulin tonight. If you are still feeling nauseated tomorrow continue with half the normal insulin dose until you are eating and drinking more normally. - Billing Disposition and Condition Condition: IMPROVED Disposition: Home - Attestation Statements Document Initiated by Neo: Yes Documenting Scribe: Kimmy Monterroso Provider For Whom Neo is Documenting (Include Credential): Dr. Sharif Cintron MD Scribe Attestation: Kimmy Freeman scribed for Dr. Sharif Cintron MD on 05/14/18 at 0423. Scribe Documentation Reviewed: Yes Provider Attestation: The documentation as recorded by the Kimmy watkins accurately reflects the service I personally performed and the decisions made by me, Dr. Sharif Cintron MD Status of Scrleno Document: Viewed
== END 2018-05-12 23:15 | disposition home or self-care (01) ==
LOC: ED 18:42
DX: R11.2 Nausea with vomiting, unspecified (principal); R19.7 Diarrhea, unspecified; I10 Essential (primary) hypertension; Z87.891 Personal history of nicotine dependence; E11.9 Type 2 diabetes mellitus without complications
CPT/HCPCS: 99283; A9270-GY

== ENCOUNTER 2018-12-27 11:20 | Emergency (ER) | payer BC ==
--- OUTSIDE RECORDS SUMMARY | 2018-12-27 11:29 | XMS REPORT | Continuity of Care Document ---
:1960 External Reference #:[id number] Author Name Fransico Vilchis D.O. 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 Onset: 01/12/2013 Benign essential hypertension Fransico Vilchis D.O. Onset: 01/12/2013 Acute bronchitis Fransico Vilchis D.O. Onset: 01/20/2013 Anxiety state Fransico Vilchis D.O. Onset: 01/20/2013 Sleep disorder Fransico Vilchis D.O. Onset: 01/20/2013 Flatulence, eructation and gas pain Fransico Vilchis D.O. Onset: 03/02/2013 Vitamin D deficiency Fransico Vilchis D.O. Onset: 03/02/2013 Screening for malignant neoplasm of colon Fransico Vilchis D.O. Onset: 2012 Tension-type headache Fransico Vilchis D.O. Onset: 09/27/2014 Low back pain Fransico Vilchis D.O. Onset: 09/27/2014 Gastroesophageal reflux disease Fransico Vilchis D.O. Onset: 04/14/2015 C/O - a back symptom Fransico Vilchis D.O. Onset: 04/27/2015 Anemia Fransico Vilchis D.O. Onset: 04/27/2015 Allergy to bee venom Fransico Vilchis D.O. Onset: 04/27/2015 Essential hypertension Fransico Vilchis D.O. Onset: 06/03/2017 Social History Type Date Description Comments Sex Unknown Tobacco Use Start: Unknown Denies Cigarette Use Tobacco Use Start: Unknown End: Former Cigarette Smoker Unknown Smoking Status Reviewed: 10/31/18 Former Cigarette Smoker Tobacco Use Start: Unknown End: Patient is a former smoker quit 16 years ago Unknown Allergies, Adverse Reactions, Alerts Active Allergies Reaction Severity Comments Date Bynatasha miranda on stomach 11/12/2016 Inactive Allergies NKDA 01/12/2013 Medications Active Medications SIG Qnty Indications Ordering Date Provider CBD [facility] Geremias Bateman.O. 9 Freestyle use for glucose 1units E11 [facility], Susu/Bonifay/Flash monitoring 1-4 times Kenia BatemanO. 9 Monitoring System daily as directed. Device Ozempic SubQ: Initial: 0.25 1.500ml [facility], 0.25or 0.5 mg once weekly Kenia BatemanORamy 9 mg/Dose Solution Pen-Inject Freestyle test glucose 4 times 2units . [facility], Susu/Sensor/Flash daily as directed Kenia BatemanO. 9 Monitoring System Misc Simvastatin 1 by mouth every day 90tabs [facility], 10mg Fransico, D.O. 9 Tablets Metaxalone Take 1 Tablet By 60tabs [facility], 800mg Mouth AT Night For Fransico D.O. 9 Tablets Leg Spasm Ventolin HFA inhale 2 puffs by 18units [facility], mouth every 4 hours Geremias Bateman.O. 9 108(90Base) mcg/Act as needed for Aerosol bronchospasm Ageless Male Unknown Supplement 9 True Metrix Blood test 1-4 times daily 200units E11.65 [facility], Glucosetest Strips as directed Geremias Bateman.O. 8 Strips Amlodipine Besylate take one tablet by 90tabs I10 [facility], mouth every day for Fransico, D.O. 8 10mg Tablets high blood pressure Metformin HCL 2 by mouth in a.m & 3 450tabs E11.65 [facility], 500mg in at night Anthony Bateman. 8 Tablets Chlorthalidone 1 by mouth every day 90tabs I10 [facility], 25mg Geremias Bateman.O. 8 Tablets Lisinopril 1 by mouth every day 90tabs I10 [facility], 40mg Geremias Bateman.O. 8 Tablets Lancets use as directed for 200units E11.65 [facility], [place] Safety diabetic testing [facility] L[facility] Test or appropriate 200units E11.65 [facility], testing strips for Allie Bateman 8 Strips patients device, test 1-4 times daily as directed Onetouch Verio 1-4 times daily as 90units E11.65 [facility], directed. Please Allie Bateman 7 Strips substitute for strips that work with patient's device. Epipen 2-Buddy Administer 0.3 ml 2units Z91.030 [facility], intramuscularly one Allie Bateman 6 0.3mg/0.3ML Solution time (dispense 2-buddy Auto-Inject for each location, e.g. home/carry/other) may repeat one time for Lorazepam 1-2 by mouth nightly 60tabs F41.9 [facility], 1mg Tablets for sleep. Allie Bateman [address] 1 by mouth every day Unknown 81mg for heart disease [address] protection History Medications Trulicity subq: initial: 4ml Fransico Vilchis, 07/14/2018 - 0.75 mg once D.O. 08/01/2018 0.75mg/0.5ML weekly Solution Pen-Inject Tramadol HCL 1-2 tabs by 60tabs M25.511 Chi Conroy, 05/22/2018 - 50mg mouth every 8 M.D. 07/13/2018 Tablets hours as needed for pain Immunizations CPT Code Status Date Vaccine Lot # [id number] Given 06/26/2014 Adacel or Boostrix, TDaP Vital Signs Date Vital Result Comment 10/31/2018 9:20am BP Systolic 122 mmHg BP Diastolic 82 mmHg Weight 230.50 lb 07/14/2018 4:57pm BP Systolic 122 mmHg BP Diastolic 82 mmHg Height 71.25 inches 5'11.25" Weight 228.00 lb BMI (Body Mass Index) 31.6 kg/m2 Results Test Date Facility Test Result H/L Range Note Laboratory test 10/31/2018 [facility] Miscellaneous Test <pending> finding [phone] Drug Abuse 20 10/31/2018 [facility] Urine Amphetamine Negative 1 Urine [phone]/mL Urine Barbiturates Negative ng/mL 2 Urine Benzodiazepines Negative ng/mL 3 Urine Cocaine Negative ng/mL 4 Urine Phencyclidine Negative ng/mL Cutoff: 25 Urine Tetrahydrocannabinol Negative ng/mL Cutoff: 50 5 Creatinine, Urine 141.1 mg/dL Specific [place] 1.016 pH 5.4 Oxidants Negative 6 Adulterants Comment Normal Codeine, Ur Not Detected ng/mL Cutoff: 25 7 Ddbbqdx-1-pdum-glucuronide, Ur Not Detected ng/mL 8 Morphine, Ur Not Detected ng/mL Cutoff: 25 9 Mtvbbysr-8-nlyo-glucuronide, U Not Detected ng/mL 10 6-monoacetylmorphine, Ur Not Detected ng/mL Cutoff: 25 11 Hydrocodone, Ur Not Detected ng/mL Cutoff: 25 12 Norhydrocodone, Ur Not Detected ng/mL Cutoff: 25 13 Dihydrocodeine, Ur Not Detected ng/mL Cutoff: 25 14 Hydromorphone, Ur Not Detected ng/mL Cutoff: 25 15 Yahjrglchkihx0tecigjsgphopumf Not Detected ng/mL 16 Oxycodone, Ur Not Detected ng/mL Cutoff: 25 17 Noroxycodone, Ur Not Detected ng/mL Cutoff: 25 18 Oxymorphone, Ur Not Detected ng/mL Cutoff: 25 19 Kniczmahdnn-9-jxxh-glucuronide Not Detected ng/mL 20 Noroxymorphone, Ur Not Detected ng/mL Cutoff: 25 21 Fentanyl, Ur Not Detected ng/mL Cutoff: 2 22 Norfentanyl, Ur Not Detected ng/mL Cutoff: 2 23 Meperidine, Ur Not Detected ng/mL Cutoff: 25 24 Normeperidine, Ur Not Detected ng/mL Cutoff: 25 25 Naloxone, Ur Not Detected ng/mL Cutoff: 25 26 Fswcgwbt-0-gsqv-glucuronide, U Not Detected ng/mL 27 Methadone, Ur Not Detected ng/mL Cutoff: 25 28 Eddp, Ur Not Detected ng/mL Cutoff: 25 29 Propoxyphene, Ur Not Detected ng/mL Cutoff: 25 30 Norpropoxyphene, Ur Not Detected ng/mL Cutoff: 25 31 Tramadol, Ur Not Detected ng/mL Cutoff: 25 32 O-desmethyltramadol, Ur Not Detected ng/mL Cutoff: 25 33 Tapentadol, Ur Not Detected ng/mL Cutoff: 25 34 N-desmethyltapentadol, Ur Not Detected ng/mL Cutoff: 50 35 Ffhmhutmub-dbph-lktqwywseup, U Not Detected ng/mL 36 Buprenorphine, Ur Not Detected ng/mL Cutoff: 5 37 Norbuprenorphine, Ur Not Detected ng/mL Cutoff: 5 38 Norbuprenorphine glucuronide Not Detected ng/mL Cutoff: 20 39 Opioid Interpretation See Comment 40 Laboratory test 10/31/2018 In House Hemoglobin A1c 7.8 finding Laboratory test 07/14/2018 In House Hemoglobin A1c 7.6 finding Laboratory test 05/12/2018 [facility] Point of Care 167 mg/dL High 70 -100 41 finding [phone] Glucose 1 REFERENCE VALUE Cutoff: 500 2 REFERENCE VALUE Cutoff: 200 3 REFERENCE VALUE Cutoff: 100 4 REFERENCE VALUE Cutoff: 150 5 ADDITIONAL INFORMATION This report is intended for use in clinical monitoring or management of patients. It is not intended for use in employment-related testing. Test Performed by: [facility] [place] [address] [place] [address] Graphic [employer] Trades Worker: Neymar Severino M.D. Ph.D.; CLIA# [id number] 6 REFERENCE VALUE Cutoff: 200 mg/L 7 Tylenol 3 8 Metabolite of codeine REFERENCE VALUE Cutoff: 100 9 Susan Ortega, MS Contin; Also a minor metabolite (10%) of codeine and can be seen in low concentrations (<2,000 ng/mL) with poppy seed ingestion. 10 Metabolite of morphine REFERENCE VALUE Cutoff: 100 11 Metabolite of heroin 12 Lortab, [place], Vicodin; Also a very minor metabolite of codeine and impurity (<1%) of oxycodone. 13 Metabolite of hydrocodone 14 Metabolite of hydrocodone 15 Dilaudid, Exalgo; Also a metabolite of hydrocodone and a minor (<5%) metabolite of morphine. 16 Metabolite of hydromorphone REFERENCE VALUE Cutoff: 100 17 Endocet, Percocet, Oxycontin 18 Metabolite of oxycodone 19 Numorphan, Opana; Also a metabolite of oxycodone. 20 Metabolite of oxymorphone REFERENCE VALUE Cutoff: 100 21 Metabolite of oxymorphone 22 Actiq, Duragesic, Fentora 23 Metabolite of fentanyl 24 Demerol 25 Metabolite of meperidine 26 Narcan 27 Metabolite of naloxone REFERENCE VALUE Cutoff: 100 28 Dolophine 29 Metabolite of methadone 30 Darvon, Darvocet 31 Metabolite of propoxyphene 32 Tradol, Ultram, Ultracet 33 Metabolite of tramadol 34 Nucynta 35 Metabolite of tapentadol 36 Metabolite of tapentadol REFERENCE VALUE Cutoff: 100 37 Buprenex, Suboxone 38 Metabolite of buprenorphine 39 Metabolite of buprenorphine 40 No opioids were detected. The absence of expected drug(s) and/or drug metabolite(s) may indicate non-compliance, altered pharmacokinetics, inappropriate timing of specimen collection relative to drug administration, diluted/adulterated urine, or limitations of testing. ADDITIONAL INFORMATION This test was developed and its performance characteristics determined by [facility] in a manner consistent with CLIA requirements. This test has not been cleared or approved by the U.S. Food and Drug Administration. [address] Supervisor: [id number] Procedures Date Code Description Status 10/31/2018 347005271 Diabetic Foot Exam Completed 05/27/2017 78325205 Colonoscopy Completed 03/14/2016 [id number] Diabetic Retinal Eye Exam Completed Medical Devices Description No Information Available Encounters Type Date Location Provider Dx Diagnosis Office Visit 10/31/2018 Main Office Fransico Vilchis, E11.65 Type 2 diabetes 9:15a D.O. mellitus with hyperglycemia Z79.4 [facility] (current) use of insulin M25.511 Pain in right shoulder M25.512 Pain in left shoulder I10 Essential (primary) hypertension F41.9 Anxiety disorder, unspecified M54.5 Low back pain J45.21 Mild intermittent asthma with (acute) exacerbation T38.3x5A Adverse effect of insulin and oral hypoglycemic drugs, init K30 Functional dyspepsia Office Visit 07/14/2018 4:30p Main Office Fransico Vilchis, Z68.31 Body mass index D.O. 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 10/31/2018 M25.511 Pain in right shoulder Fransico Vilchis, D.O. 10/31/2018 M25.512 Pain in left shoulder Fransico Vilchis, D.O. 10/31/2018 I10 Essential (primary) hypertension Fransico Vilchis, D.O. 10/31/2018 F41.9 Anxiety disorder, unspecified Babs Vilchison, D.O. 10/31/2018 M54.5 Low back pain Fransico Vilchis, D.O. 10/31/2018 J45.21 Mild intermittent asthma with (acute) SopFransico javier, D.O. exacerbation 10/31/2018 T38.3x5A Adverse effect of insulin and oral Fransico Vilchis, D.O. hypoglycemic [antidiabetic] drugs, initial encounter 10/31/2018 K30 Functional dyspepsia Fransico Vilchis D.O. 07/14/2018 Z68.31 Body mass index (BMI) 31.0-31.9, adult Fransico Vilchis D.O. 07/14/2018 E11.65 Type 2 diabetes mellitus with hyperglycemia Fransico Vilchis , D.O. 07/14/2018 Z79.4 [facility] (current) use of insulin Fransico Vilchis D.O. 07/14/2018 M25.511 Pain in right shoulder Fransico Vilchis D.O. 07/14/2018 I10 Essential (primary) hypertension Fransico Vilchis D.O. 07/14/2018 F41.9 Anxiety disorder, unspecified Fransico Vilchis D.O. 07/14/2018 M54.5 Low back pain Fransico Vilchis D.O. 05/22/2018 M25.511 Pain in right shoulder Cydney Flores PA Plan of Treatment Future Appointment(s):02/02/2019 4:30 pm - Fransico Vilchis D.O. at Main [facility]10/31/2018 - Fransico Vilchis D.O.E11.65 Type 2 diabetes mellitus with hyperglycemiaNew Medication:Freestyle Susu/Bonifay/Flash Monitoring System - use for glucose monitoring 1-4 times daily as directed.Ozempic 0.25 or 0.5 mg/ Dose - SubQ: Initial: 0.25 mg once weeklyFreestyle Susu/Sensor/Flash Monitoring System - test glucose 4 times daily as directedFollow up:3 months recheck DM with A1cZ79.4 [facility] (current) use of zlqzupoZ55.511 Pain in right eydsykzsU23.512 Pain in left yqgljpfwK82 Essential (primary) anfhtxjuiptvK20.9 Anxiety disorder, slacxrhigztP89.5 Low back painJ45.21 Mild intermittent asthma with (acute) nalpnbcrntabR08.3x5A Adverse effect of insulin and oral hypoglycemic [antidiabetic] drugs, initial jrbunzynbT26 Functional dyspepsia Functional Status Description No Information Available Mental Status Description No Information Available Referrals Description No Information Available
--- NOTE | 2018-12-27 11:41 | ED ---
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 He was at work and a coworker offered him something to smoke, which was allegedly to help with his back pain. He thought that it was marijuana but after smoking it, he began to feel his throat closing. On the EMS he was given 50 mg Benadryl and 0.3 mg epinephrine and states that he felt some chest pressure after it but denies any current CP. He rates his current pain severity a 0/10. No aggravating factors noted. He also reports dizziness, weakness, dry throat, and tongue swelling but denies any SOB. He does not smoke , drink, or use recreational drugs. He has Hx of hernia repair surgery. - History Of Current Complaint Time Seen by Provider: 12/27/18 11:28 Hx Obtained From: Patient Onset/Duration: Lasting Hours, Still Present Timing: Hours Severity Currently: None Severity Initially: Mild Location: Negative Aggravating Factor(s): nothing Alleviating Factor(s): Epinephrine Associated Signs And Symptoms: Positive: Dizziness, Weakness, Other - pos - throat narrowing, dry throat, swollen tongue. Negative: SOB, Chest Pain - Allergies/Home Medications Allergies/Adverse Reactions: Allergies Allergy/AdvReac Type Severity Reaction Status Date / Time exenatide Allergy Unknown Verified 05/27/17 09:35 Reaction Details Home Medications: Home Medications Chlorthalidone 25 mg PO DAILY 12/27/18 [History Confirmed 12/27/18] Simvastatin TAB(NF) [Zocor 10 MG (NF)] 10 mg PO BEDTIME 12/27/18 [History Confirmed 12/27/18] amLODIPine TAB* [Norvasc 5 mg TAB*] 10 mg PO DAILY 12/27/18 [History Confirmed 12/27/18] PMH/Surg Hx/FS Hx/Imm Hx Endocrine/Hematology History: Reports: Hx Diabetes - controlled Cardiovascular History: Reports: Hx Hypertension - controlled, Other Cardiovascular Problems/Disorders - Hx HTN Respiratory History: Reports: Hx Asthma - Wheezing r/t upper respiratory infections GI History: Reports: Other GI Disorders - Hx GERD Musculoskeletal History: Denies: Hx Rheumatoid Arthritis, Hx Osteoporosis - Surgical History Surgical History: Yes Surgery Procedure, Year, and Place: 3 hernia repair, 2 inguinal and 1 umbilical , ear surgery at age 8, tonsillectomy as a child, repair to R middle finger Infectious Disease History: Denies: Hx Clostridium Difficile, Hx Hepatitis, Hx Human Immunodeficiency Virus (HIV), Hx of Known/Suspected MRSA, Hx Shingles, Hx Tuberculosis, Hx Known/ Suspected VRE, Hx Known/Suspected VRSA, History Other Infectious Disease, Traveled Outside the [place] in Last 30 Days - Family History Known Family History: Positive: Diabetes - Social History Alcohol Use: None Substance Use Type: Reports: None Smoking Status (MU): Former Smoker Have You Smoked in the Last Year: No Review of Systems Positive: Other - pos - throat narrowing, dry throat, swollen tongue Negative: Chest Pain Negative: Shortness Of Breath Neurological: Other - pos - dizziness Positive: Weakness All Other Systems Reviewed And Are Negative: Yes Physical Exam - Summary Physical Exam Summary: VITAL SIGNS: Reviewed. GENERAL: Patient is a well-developed and nourished male who is lying comfortable in the stretcher. Patient is not in any acute respiratory distress. HEAD AND FACE: No signs of trauma. No ecchymosis, hematomas or skull depressions. No sinus tenderness. EYES: PERRLA, EOMI x 2, No injected conjunctiva, no nystagmus. EARS: Hearing grossly intact. Ear canals and tympanic membranes are within normal limits. MOUTH: Oropharynx within normal limits. NECK: Supple, trachea is midline, no adenopathy, no JVD, no carotid bruit, no c- spine tenderness, neck with full ROM. CHEST: Symmetric, no tenderness at palpation. LUNGS: Clear to auscultation bilaterally. No wheezing or crackles. CVS: Regular rate and rhythm, S1 and S2 present, no murmurs or gallops appreciated. ABDOMEN: Soft, non-tender. No signs of distention. No rebound, no guarding, and no masses palpated. Bowel sounds are normal. EXTREMITIES: FROM in all major joints, no edema, no cyanosis or clubbing. NEURO: Alert and oriented x 3. No acute neurological deficits. Speech is normal and follows commands. SKIN: Dry and warm. Triage Information Reviewed: Yes Vital Signs Reviewed: Yes Procedures - Sedation Patient Received Moderate/Deep Sedation with Procedure: No Diagnostics - Laboratory Result Diagrams: 12/27/18 12:01 12/27/18 12:01 Lab Statement: Any lab studies that have been ordered have been reviewed, and results considered in the medical decision making process. - Radiology CXR Radiology Interpretation Completed By: Radiologist Summary of Radiographic Findings: IMPRESSION: NO EVIDENCE FOR ACTIVE CARDIOPULMONARY DISEASE. ED Physician has reviewed this report. - EKG 1200 Cardiac Rate: NL EKG Rhythm: Sinus Rhythm - 79 bpm EKG Comparison: No Significant Change Summary of EKG Findings: EKG @ 1200 reveals NSR @ 79 bpm. No significant change from previous EKG done on 09/13. No ST elevations. Normal axis. Complex Multi-Symp Course/Dx Assessment/Plan: Blood work w/o significant abnormality except for a slight decrease in hemoglobin and hematocrit of 12.4 with 36. Sodium 133, BUNs 42 creatinine is 1.61.probably just secondary to DEHYDRATION THEREFORE THE PATIENT WAS GIVEN 750 CC OF IV FLUIDS BY EMS, HE HAD ANOTHER 500 CC OF IV FLUIDS. Glucose is 241, magnesium was 1.6, CPK is 233 and CRP of 9.91. Urinalysis is negative for UTI. Urine toxicology positive for cannabinoids. Serum alcohol level is less than 10. Prior arrival to the ED EMS reported that the patient had an allergic reaction therefore he was given epinephrine, Decadron and Benadryl. I believe that the patient does have an allergic reaction. The patient is having swelling of the tongue, feeling that his throat is closing, no shortness of breath and has no other complaints. The patient was observed for a couple hours in the ED and the symptoms havent improved. The patient was alert oriented 3. The patient was given 4 mg Zofran and he had no nausea/ vomiting. I discussed all the findings and test results with the patient. Patient was instructed to return to the emergency room immediately if any of the symptoms return or worsen . Plan of care was discussed with the patient and understands and agrees. All questions were answered at patient satisfaction. There were no further complaints or concerns. Lung exam before discharge: CTA B /L. Good air exchange. No wheezing or crackles heard. CVS: S1 and S2 present. No murmurs appreciated. Patient is alert and oriented x 3. Patient is hemodynamically stable. 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 RETURN TO THE ED FOR ANY WORSENING OR NEW SYMPTOMS. - Billing Disposition and Condition Condition: STABLE Disposition: Home - Attestation Statements Document Initiated by Neo: Yes Documenting Scribe: Lars Carey Provider For Whom Radhaibleonel is Documenting (Include Credential): Manjinder Boswell MD Scribe Attestation: I, Lars Carey, scribed for Manjinder Boswell MD on 12/27/18 at 1829. Scribe Documentation Reviewed: Yes Provider Attestation: The documentation as recorded by the Lars watkins accurately reflects the service I personally performed and the decisions made by me, Manjinder Boswell MD Status of Scribe Document: Viewed
[2018-12-27] MEDS ORDERED: Ondansetron INJ* 2 MG/ML VIAL IV ONE (11:42)
[2018-12-27] MEDS ORDERED: NS 0.9% 500 ML* 500 ML IV SCH (12:00)
[2018-12-27 12:14] LABS: ABS Eosinophils 0.1 10^3/ul (0-0.6); ABS Lymphocytes 0.8 10^3/ul (1.0-4.8); ABS Monocytes 0.5 10^3/ul (0-0.8); ABS Neutrophils 4.5 10^3/ul (1.5-7.7); Eosinophil % 2.4 %; Hematocrit 36 % (42-52); Hemoglobin 12.4 g/dL (14.0-18.0); Lymphocyte % 13.2 %; Mean Corpuscular HGB Conc 34 g/dL (31-36); Mean Corpuscular Hemoglobin 29 pg (27-31); Mean Corpuscular Volume 84 fL (80-94); Mean Platelet Volume 7.9 fL (7.4-10.4); Platelet Count 169 10^3/uL (150-450); Red Blood Count 4.31 10^6 /uL (4.18-5.48); Red Cell Distribution Width 15 % (10-15)
[2018-12-27 12:25] LABS: ALT 24 U/L (7-52); AST 24 U/L (13-39); Albumin 3.9 g/dL (3.2-5.2); Albumin/Globulin Ratio 1.6 (1-3); Alkaline Phosphatase 75 U/L (34-104); Anion Gap 7 mmol/L (2-11); BUN/Creatinine Ratio 26.1 (8-20); Blood Urea Nitrogen 42 mg/dL (6-24); C Reactive Protein 9.91 mg/L (<8.01); CO2 Carbon Dioxide 24 mmol/L (22-32); Calcium 8.6 mg/dL (8.6-10.3); Chloride 102 mmol/L (101-111); Creatine Kinase 233 U/L (10-223); EGFR African American 53.4 (>60); EGFR Non-African American 44.1 (>60); Globulin 2.5 g/dL (2-4); Glucose 241 mg/dL (70-100); Magnesium 1.6 mg/dL (1.9-2.7); Potassium 4.5 mmol/L (3.5-5.0); Sodium 133 mmol/L (135-145); Total Protein 6.4 g/dL (6.4-8.9)
[2018-12-27 12:49] LABS: Alcohol < 10 mg/dL (<10)
[2018-12-27 12:51] LABS: Urine Appearance Clear; Urine Bilirubin Negative (Negative); Urine Blood Negative (Negative); Urine Color Yellow; Urine Glucose 1+(50 mg/dL) (Negative); Urine Ketones Negative (Negative); Urine Nitrite Negative (Negative); Urine Protein Negative (Negative); Urine Urobilinogen Negative (Negative)
[2018-12-27 13:04] LABS: TSH (Thyroid Stimulating Horm) 1.93 mcIU/mL (0.34-5.60)
[2018-12-27 13:41] LABS: Urine Benzodiazepine Screen None Detected (None Detect); Urine Opiates Screen None Detected (None Detect)
[2018-12-27] MEDS ORDERED: Magnesium Oxide TAB* 400 MG PO ONE (14:01)
[2018-12-27 15:51] VITALS: BP 104/64
== END 2018-12-27 15:45 | disposition home or self-care (01) ==
LOC: ED 11:20
DX: T50.901A Poisoning by unspecified drugs, medicaments and biological substances, accidental (unintentional), initial encounter (principal); Y92.9 Unspecified place or not applicable; E11.9 Type 2 diabetes mellitus without complications; I10 Essential (primary) hypertension; J45.909 Unspecified asthma, uncomplicated; Z87.891 Personal history of nicotine dependence; Z88.8 Allergy status to other drugs, medicaments and biological substances; Z79.82 Long term (current) use of aspirin; Z79.84 Long term (current) use of oral hypoglycemic drugs; Z79.899 Other long term (current) drug therapy
CPT/HCPCS: 36415; 71045; 80053; 80307; 80320; 81003; 82550; 83605; 83735; 83880; 84443; 84484; 85025; 86140; 93005; 96361; 96374; 99284; G0480; J2405